=== PATIENT | male | born 1990 | race Caucasian/White ===

== ENCOUNTER 2016-12-13 11:28 | Emergency (ER) | payer OTHER, SELFPAY ==
[2016-12-13] MEDS ORDERED: Sodium Chloride 0.9% 1000 ML 1,000 ML IV STA ×2 (11:31→11:34)
[2016-12-13] MEDS ORDERED: Geodon 20 MG INJ IM ONE ×2 (11:32→11:46)
[2016-12-13] MEDS ORDERED: Lactated Ringers 1,000 ML IV ONE ×4 (11:32→12:08)
[2016-12-13] MEDS ORDERED: Ketamine HCl 50 MG/ML IM ONE (11:33)
[2016-12-13] MEDS ORDERED: D50W 50 ml Abboject IV ONE ×2 (11:33→11:41)
[2016-12-13] MEDS ORDERED: FEVERALL 650 MG PR STA (11:39)
[2016-12-13] MEDS ORDERED: ROCEPHIN 2 Gm-D5w 50ML BAG** 2 G/50 ML IVPB IV STA (11:39)
[2016-12-13] MEDS ORDERED: FEVERALL 325 MG ONE (11:42)
[2016-12-13] MEDS ORDERED: FEVERALL 650 MG ONE (11:43)
[2016-12-13 11:44] LABS: Mean Cell Volume 91.5 fl (78-100); Mean Corpuscular Hemoglobin 30.1 pg (26-32); Mean Platelet Volume 12.4 fl (6-9.5); Platelet Count 364 K/mm3 (150-450); Red Blood Count 5.54 M/mm3 (4.1-5.6); Red Cell Distribution Width 14.3 % (11.5-14.0); White Blood Count 17.6 K/mm3 (4.0-10.5)
[2016-12-13] MEDS ORDERED: Sodium Chloride 0.9% 1000 ML 2,000 ML ONE (11:44)
[2016-12-13] MEDS ORDERED: ROCEPHIN 2 Gm-D5w 50ML BAG** 2 G/50 ML IVPB IV ONE (11:44)
[2016-12-13] MEDS ORDERED: VERSED 5 MG/5 ML ONE ×3 (11:46→13:15)
[2016-12-13 11:52] LABS: INR 1.01 (0.8-3.0); PROTIME 11.2 SECONDS (8.83-12.87)
[2016-12-13] MEDS ORDERED: SODIUM BICARBONATE 50 MEQ/50 ML ABBOJECT IV ONE ×2 (11:57→12:10)
[2016-12-13 12:03] LABS: VBG BASE EXCESS -21.5 (-2.0-2.0); VBG CARBOXYHEMOGLOBIN 2.6 % T HGB (0.0-6.9); VBG HCO3- 8.8 meq/L (22-28); VBG HEMOGLOBIN 17.2; VBG POTASSIUM 6.1 (3.5-5.1); VBG pH 7.02 (7.32-7.42)
[2016-12-13 12:04] LABS: ALBUMIN 5.7 g/dL (3.4-5.0); ALKALINE PHOSPHATASE 122 U/L (46-116); ANION GAP 45.3 MEQ/L (5-15); BLOOD UREA NITROGEN 23 mg/dL (9-20); CHLORIDE 102 mEq/L (98-107); MAGNESIUM 4.5 mg/dL (1.8-2.4); SGOT/AST 48 U/L (15-37); SGPT/ALT 30 U/L (12-78); Total Protein 9.6 gm/dL (6.4-8.2)
[2016-12-13 12:04] LABS: A-aADO2 589; ARTERIAL BLD GAS O2 SATURATION 93.7 % (95-100); ARTERIAL BLOOD GAS BASE EXCESS -14.8 (-2.0-2.0); ARTERIAL BLOOD GAS FIO2 100 %; ARTERIAL BLOOD GAS PO2 74 mmHg (75-100); Lactic Acid 13.8 (0.4-2.0)
[2016-12-13 12:05] LABS: ARTERIAL BLOOD GAS pH 7.14 (7.35-7.45)
[2016-12-13 12:08] LABS: Potassium 6.2 mEq/L (3.5-5.1); SODIUM 152 mEq/L (136-145)
[2016-12-13] MEDS ORDERED: Adacel Vial IM ONE (12:08)
--- NOTE | 2016-12-13 12:08 | XRAY ---
Indication: Acute mental status change. Comparison: None Portable chest limited by respiration artifact. Lungs inflated and clear. Heart is not enlarged. Bony thorax intact. Impression: Nonacute limited chest.
[2016-12-13 12:09] LABS: Carbon Dioxide 10.5 mEq/L (21-32)
[2016-12-13 12:10] LABS: ETHYL ALCOHOL < 0.010 % (0.00-0.01); Glucose 61 MG/DL (70-110)
[2016-12-13 12:11] LABS: ACETAMINOPHEN < 2 ug/ml (10-30)
[2016-12-13] MEDS ORDERED: VERSED 5 MG/5 ML IV ONE ×2 (12:12→12:13)
[2016-12-13 12:14] LABS: Eosinophil 1 % (0.00-3.0); Total Cells Counted 100
[2016-12-13 12:16] LABS: Platelet Estimate NORMAL (NORMAL)
[2016-12-13 12:22] LABS: Collection Type CATH
[2016-12-13 12:23] LABS: Bilirubin SMALL (NEGATIVE); COMPLETE URINE MICROSCOPIC? YES; Glucose NEGATIVE (NEGATIVE)
[2016-12-13 12:24] LABS: Leukocyte Esterase 1+ (NEGATIVE); Mucus SLIGHT /HPF (NEGATIVE)
[2016-12-13 12:25] LABS: ADD URINE CULTURE? YES (NO); Bacteria FEW /HPF (NEGATIVE); Epithelial Cells RARE /HPF (FEW); Hyaline Casts 0-2 /LPF (0-2)
[2016-12-13] MEDS ORDERED: DUONEB 0.5-3 MG/3 ml Neb IH ONE ×2 (12:30→12:31)
[2016-12-13 12:36] LABS: Lactic Acid > 20.0 (0.4-2.0)
--- NOTE | 2016-12-13 12:57 | ERPHSYRPT ---
- History of Present Illness Time Seen by Provider: 12/13/16 11:31 Source: EMS, police Patient Subjective Stated Complaint: PT BROUGHT TO ED WITH POLICE ET EMS-EMS CALLED TO SCENE DUE TO PT BEING COMBATIVE ET OVERDOSE-PT HAD REQUIRED [employer] OFFICERS TO RESTRAIN HIM Triage Nursing Assessment: PT ARRIVED [id number] ABOUT HIS GENITALS-PT RESTRAINED BY [employer] PERSONEL-SUPERFICIAL ABRASIONS NOTED TO UPPER BACK-PT STRAINING-HOT TO TOUCH-DIAPHOETIC Physician History: CC: agitation Hx: 26 y/o patient brought to ER per EMS and police. They were called to someone outside naked, screaming about drugs, and acting crazy. He was extremely agitated. He arrived per EMS with multiple attendants. He has superficial scratches and abrasion. He was yelling, rigid, and combative. Pt unable to give hx. 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 - Past Surgical History Past Surgical History: Yes Other Surgical History: T&A - Social History Smoking Status: Current every day smoker How long have you smoked: 5 Exposure to second hand smoke: Yes Drug Use: none Patient Lives Alone: No - Nursing Vital Signs Nursing Vital Signs: Initial Vital Signs Pulse Rate 155 H 12/13/16 11:33 Blood Pressure 134/85 12/13/16 11:33 O2 Sat by Pulse Oximetry 96 12/13/16 11:33 - Physical Exam General Appearance: other (extremely agitated) Eye Exam: PERRL/EOMI Ears, Nose, Throat Exam: dry mucous membranes (dried blood on lips) Respiratory Exam: rhonchi Cardiovascular Exam: regular rate/rhythm, tachycardia Gastrointestinal/Abdomen Exam: soft, No tenderness, No distention Male Genitalia Exam: normal genitalia Back Exam: other (superficial abrasions) Extremity Exam: normal range of motion Neurologic Exam: other (moves all extremities, kicking, hitting, flailing) Skin Exam: other (hot skin that is diaphoretic) SpO2 Interpretation: normal SpO2: 99 Oxygen Delivery: Nasal Cannula Procedures - Intubation Intubation Indications: airway protection Intubation Method: glidescope Tube Size (cm): 7.5 Medications: Midazolam (Versed), Rocuronium Endotracheal Tube Confirmation: bilateral breath sounds, positive end tidal CO2 , good rise & fall of chest, stable or inc of O2 sat Intubation Complications: no complications Performed By: Respiratory Therapy Post Intubation Xray: Yes - Course Nursing assessment & vital signs reviewed: Yes EKG Interpreted by Me: RATE (147), Sinus Tach, NORMAL AXIS, NORMAL INTERVALS ( QTc 438), Non-specific ST Changes - Radiology Exams cxr X-ray Interpretation: Discussed w/ radiologist, Negative Ordered Tests: Active Orders 24 hr Category Date Time Status CO2 Monitoring STAT Care 12/13/16 12:12 Active Public Policy Coordinator STAT Care 12/13/16 11:31 Active Catheter-Marathon Ocntreras STAT Care 12/13/16 11:31 Active EKG-ER Only STAT Care 12/13/16 11:31 Active IV Insertion STAT Care 12/13/16 11:31 Active Pulse Oximetry (ED) STAT Care 12/13/16 12:12 Active CHEST 1 VIEW (PORTABLE) Stat Exams 12/13/16 11:34 Completed CHEST 1 VIEW (PORTABLE) Stat Exams 12/13/16 12:59 Taken ABG [ARTERIAL BLOOD GASES] Urgent Lab 12/13/16 12:50 Results ACETAMINOPHEN Stat Lab 12/13/16 11:44 Completed ARTERIAL BLOOD GASES Stat Lab 12/13/16 12:02 Completed BLOOD CULTURE Stat Lab 12/13/16 11:44 Received CBC W DIFF Stat Lab 12/13/16 11:44 Completed CK-Creatinine Phosphokinase Stat Lab 12/13/16 11:44 Completed CMP Stat Lab 12/13/16 11:44 Completed CULTURE,URINE Stat Lab 12/13/16 11:45 Received ETHYL ALCOHOL Stat Lab 12/13/16 11:44 Completed Glucose,Critical Care Stat Lab 12/13/16 12:05 Completed Glucose,Critical Care Urgent Lab 12/13/16 12:02 Completed Glucose,Critical Care Urgent Lab 12/13/16 12:50 Completed Lactic Acid Stat Lab 12/13/16 11:33 Completed Lactic Acid Stat Lab 12/13/16 12:02 Completed Lactic Acid Urgent Lab 12/13/16 12:50 Results MAGNESIUM Stat Lab 12/13/16 11:44 Completed Manual Differential NC Stat Lab 12/13/16 11:44 Completed PROTIME WITH INR Stat Lab 12/13/16 11:44 Completed SALICYLATE Stat Lab 12/13/16 11:44 Completed UA W/ MICROSCOPIC Stat Lab 12/13/16 11:45 Completed Urine Triage Profile Stat Lab 12/13/16 11:45 Completed VENOUS BLOOD GAS Stat Lab 12/13/16 11:32 Completed Respiratory Nebulizer STAT RT 12/13/16 12:31 Active Medication Summary Generic Name Dose Route Start Last Admin Trade Name Freq PRN Reason Stop Dose Admin Lactated Ringer's 1,000 mls @ 100 mls/hr 12/13/16 13:00 12/13/16 13:02 Lactated Ringers IV 01/12/17 12:59 100 mls/hr .Q10H ASHLEY Administration Midazolam HCl 50 mg/ Sodium 250 mls @ 10 mls/hr 12/13/16 13:03 12/13/16 13:26 Chloride IV 01/12/17 13:02 2 mg/hr .Q24H PRN 10 mls/hr SEDATION Administration Protocol 2 MG/HR Sodium Bicarbonate 150 meq/ 1,150 mls @ 125 mls/hr 12/13/16 13:30 12/13/16 13 :30 Dextrose IV 12/13/16 22:41 100 ml/hr .Q9H12M ASHLEY 100 mls/hr Administration Potassium Chloride 100 mls @ 25 mls/hr 12/13/16 13:40 Potassium Chloride 20 Meq In Water 100ml IV 12/13/16 17:39 STAT ONE Discontinued Medications Generic Name Dose Route Start Last Admin Trade Name Freq PRN Reason Stop Dose Admin Acetaminophen 975 mg 12/13/16 11:39 12/13/16 11:43 Feverall 650 Mg NC 12/13/16 11:40 975 mg STAT STA Administration Acetaminophen Confirm 12/13/16 11:42 Feverall 325 Mg Administered 12/13/16 11:43 Dose 325 mg .ROUTE .STK-MED ONE Acetaminophen Confirm 12/13/16 11:43 Feverall 650 Mg Administered 12/13/16 11:44 Dose 650 mg .ROUTE .STK-MED ONE Albuterol/Ipratropium Confirm 12/13/16 12:30 Duoneb 0.5-3 Mg/3 Ml Neb Administered 12/13/16 12:31 Dose 3 ml IH .STK-MED ONE Albuterol/Ipratropium 3 ml 12/13/16 12:31 Duoneb 0.5-3 Mg/3 Ml Neb IH 12/13/16 12:32 STAT ONE Dextrose 50 ml 12/13/16 11:33 12/13/16 11:43 D50w 50 Ml Abboject IV 12/13/16 11:34 50 ml STAT ONE Administration Dextrose Confirm 12/13/16 11:41 D50w 50 Ml Abboject Administered 12/13/16 11:42 Dose 50 ml IV .STK-MED ONE Diphtheria/Tetanus/Acell Pertussis Confirm 12/13/16 12:08 Adacel Vial Administered 12/13/16 12:09 Dose 0.5 ml IM .STK-MED ONE Sodium Chloride 1,000 mls @ 999 mls/hr 12/13/16 11:31 12/13/16 11:36 Sodium Chloride 0.9% 1000 Ml IV 12/13/16 12:31 999 mls/hr .Q1H1M STA Administration Lactated Ringer's 1,000 mls @ 999 mls/hr 12/13/16 11:32 12/13/16 11:36 Lactated Ringers IV 12/13/16 12:32 999 mls/hr .Q1H1M ONE Administration Sodium Chloride 1,000 mls @ 999 mls/hr 12/13/16 11:34 12/13/16 11:40 Sodium Chloride 0.9% 1000 Ml IV 12/13/16 12:34 999 mls/hr .Q1H1M STA Administration Lactated Ringer's Confirm 12/13/16 11:33 Lactated Ringers Administered 12/13/16 11:34 Dose 1,000 mls @ ud IV .STK-MED ONE Ceftriaxone Sodium/Dextrose 2 g in 50 mls @ 100 mls/hr 12/13/16 11:39 11:46 Rocephin 2 Gm-D5w 50ml Bag IV 12/13/16 12:08 100 mls/hr STAT STA Administration Lactated Ringer's Confirm 12/13/16 11:43 Lactated Ringers Administered 12/13/16 11:44 Dose 1,000 mls @ ud IV .STK-MED ONE Ceftriaxone Sodium/Dextrose Confirm 12/13/16 11:44 Rocephin 2 Gm-D5w 50ml Bag Administered 12/13/16 11:45 Dose 2 g in 50 mls @ ud IV .STK-MED ONE Sodium Chloride Confirm 12/13/16 11:44 Sodium Chloride 0.9% 1000 Ml Administered 12/13/16 11:45 Dose 2,000 mls @ ud .ROUTE .STK-MED ONE Lactated Ringer's Confirm 12/13/16 12:08 Lactated Ringers Administered 12/13/16 12:09 Dose 1,000 mls @ ud IV .STK-MED ONE Dextrose/Lactated Ringer's Confirm 12/13/16 13:00 Dextrose 5%-Lr Iv Solution 1000 Ml Administered 12/13/16 13:01 Dose 1,000 mls @ ud IV .STK-MED ONE Ketamine HCl 300 mg 12/13/16 11:33 12/13/16 11:36 Ketamine Hcl 50 Mg/Ml IM 12/13/16 11:34 300 mg STAT ONE Administration Midazolam HCl Confirm 12/13/16 11:46 Versed 5 Mg/5 Ml Administered 12/13/16 11:47 Dose 5 mg .ROUTE .STK-MED ONE Midazolam HCl Confirm 12/13/16 11:47 Versed 5 Mg/5 Ml Administered 12/13/16 11:48 Dose 5 mg .ROUTE .STK-MED ONE Midazolam HCl 2.5 mg 12/13/16 12:12 12/13/16 11:52 Versed 5 Mg/5 Ml IV 12/13/16 12:13 2.5 mg STAT ONE Administration Midazolam HCl 2.5 mg 12/13/16 12:13 12/13/16 12:14 Versed 5 Mg/5 Ml IV 12/13/16 12:14 2.5 mg STAT ONE Administration Sodium Bicarbonate Confirm 12/13/16 11:57 Sodium Bicarbonate 50 Meq/50 Ml Abboject Administered 12/13/16 11:58 Dose 50 meq IV .STK-MED ONE Sodium Bicarbonate 50 meq 12/13/16 12:10 12/13/16 12:02 Sodium Bicarbonate 50 Meq/50 Ml Abboject IV 12/13/16 12:11 50 meq STAT ONE Administration Ziprasidone 20 mg 12/13/16 11:32 12/13/16 11:39 Geodon 20 Mg Inj IM 12/13/16 11:33 20 mg STAT ONE Administration Ziprasidone Confirm 12/13/16 11:46 Geodon 20 Mg Inj Administered 12/13/16 11:47 Dose 20 mg IM .STK-MED ONE Lab/Rad Data: Laboratory Result Diagrams 12/13/16 11:44 12/13/16 11:44 Laboratory Results 12/13/16 12/13/16 12/13/16 Range/Units 12:50 12:50 12:05 WBC (4.0-10.5) K/mm3 RBC (4.1-5.6) M/mm3 Hgb (12.5-18.0) gm/dl Hct (42-50) % MCV (78-100) fl MCH (26-32) pg MCHC (32-36) g/dl RDW (11.5-14.0) % Plt Count (150-450) K/mm3 MPV (6-9.5) fl Segmented Neutrophils (36.-66.) % Lymphocytes (Manual) (24-44) % Monocytes (Manual) (0.0-12.0) % Eosinophils (Manual) (0.00-3.0) % Differential Comment Platelet Estimate (NORMAL) INR (0.8-3.0) Puncture Site lr pCO2 54 H (35-45) mmHg pO2 288 H* (75-100) mmHg Base Excess -6.8 L (-2.0-2.0) O2 Saturation 97.5 (94-100) g/dF ABG pH 7.21 L* (7.35-7.45) ABG HCO3 21.6 L (22-28) ABG O2 Sat (Measured) 100.5 H (95-100) % Lexx Test NOT APPLICABLE VBG pH (7.32-7.42) VBG pCO2 at Pat Temp (42-55) mm/Hg VBG pO2 at Pat Temp (25-40) mm/Hg VBG HCO3 (22-28) meq/L VBG O2 Sat (Lulu) (95-100) VBG Base Excess (-2.0-2.0) VBG Hemoglobin VBG Carboxyhemoglobin (0.0-6.9) % T HGB A-a Gradient 358 a/A Ratio 0.45 Hemoglobin 13.5 Carboxyhemoglobin 1.8 (0.0-6.9) % THgb Methemoglobin 1.2 L (1.4-1.5) % POC Potassium (3.5-5.1) Temperature 37.0 C POC O2 Flow Rate 100 % Sodium (136-145) mEq/L Potassium 4.8 (3.5-5.1) mEq/L Chloride (98-107) mEq/L Carbon Dioxide (21-32) mEq/L Anion Gap (5-15) MEQ/L BUN (9-20) mg/dL Creatinine (0.55-1.30) mg/dl Estimated GFR ML/MIN Glucose 90 139 H (70-110) MG/DL Lactic Acid 3.6 H (0.4-2.0) Calcium (8.5-10.1) mg/dL Magnesium (1.8-2.4) mg/dL Total Bilirubin (0.2-1.0) mg/dL AST (15-37) U/L ALT (12-78) U/L Alkaline Phosphatase (46-116) U/L Creatine Kinase (39-308) U/L Serum Total Protein (6.4-8.2) gm/dL Albumin (3.4-5.0) g/dL Ur Collection Type Urine Color (YELLOW) Urine Appearance (CLEAR) Urine pH (5-6) Ur Specific [place] (1.005-1.025) Urine Protein (Negative) Urine Ketones (NEGATIVE) Urine Blood (0-5) Corey/ul Urine Nitrite (NEGATIVE) Urine Bilirubin (NEGATIVE) Urine Urobilinogen (0-1) mg/dL Ur Leukocyte Esterase (NEGATIVE) Urine Microscopic RBC (0-2) /HPF Urine Microscopic WBC (0-5) /HPF Ur Epithelial Cells (FEW) /HPF Urine Bacteria (NEGATIVE) /HPF Hyaline Casts (0-2) /LPF Granular Casts (NEGATIVE) /LPF Urine Mucus (NEGATIVE) /HPF Urine Sperm (NEGATIVE) /HPF Urine Glucose (NEGATIVE) mg/dL Salicylates (2.8-20.0) mg/dl Urine Opiates Level (NEGATIVE) Ur Methadone (NEGATIVE) Acetaminophen (10-30) ug/ml Urine Barbiturates (NEGATIVE) Ur Phencyclidine (PCP) (NEGATIVE) Urine Amphetamine (NEGATIVE) U Benzodiazepine Level (NEGATIVE) Urine Cocaine (NEGATIVE) Urine Marijuana (THC) (NEGATIVE) Ethyl Alcohol (0.00-0.01) % Specimen Received 12/13/16 12/13/16 12/13/16 Range/Units 12:02 12:02 11:45 WBC (4.0-10.5) K/mm3 RBC (4.1-5.6) M/mm3 Hgb (12.5-18.0) gm/dl Hct (42-50) % MCV (78-100) fl MCH (26-32) pg MCHC (32-36) g/dl RDW (11.5-14.0) % Plt Count (150-450) K/mm3 MPV (6-9.5) fl Segmented Neutrophils (36.-66.) % Lymphocytes (Manual) (24-44) % Monocytes (Manual) (0.0-12.0) % Eosinophils (Manual) (0.00-3.0) % Differential Comment Platelet Estimate (NORMAL) INR (0.8-3.0) Puncture Site LEFT RADIAL pCO2 40 (35-45) mmHg pO2 74 L (75-100) mmHg Base Excess -14.8 L (-2.0-2.0) O2 Saturation 91.0 L (94-100) g/dF ABG pH 7.14 L* (7.35-7.45) ABG HCO3 13.6 L* (22-28) ABG O2 Sat (Measured) 93.7 L (95-100) % Lexx Test NOT APPLICABLE VBG pH (7.32-7.42) VBG pCO2 at Pat Temp (42-55) mm/Hg VBG pO2 at Pat Temp (25-40) mm/Hg VBG HCO3 (22-28) meq/L VBG O2 Sat (Lulu) (95-100) VBG Base Excess (-2.0-2.0) VBG Hemoglobin VBG Carboxyhemoglobin (0.0-6.9) % T HGB A-a Gradient 589 a/A Ratio 0.11 Hemoglobin 14.5 Carboxyhemoglobin 2.1 (0.0-6.9) % THgb Methemoglobin 0.8 L (1.4-1.5) % POC Potassium (3.5-5.1) Temperature 37.0 C POC O2 Flow Rate 100 % Sodium (136-145) mEq/L Potassium 5.2 H (3.5-5.1) mEq/L Chloride (98-107) mEq/L Carbon Dioxide (21-32) mEq/L Anion Gap (5-15) MEQ/L BUN (9-20) mg/dL Creatinine (0.55-1.30) mg/dl Estimated GFR ML/MIN Glucose 54 L (70-110) MG/DL Lactic Acid 13.8 H (0.4-2.0) Calcium (8.5-10.1) mg/dL Magnesium (1.8-2.4) mg/dL Total Bilirubin (0.2-1.0) mg/dL AST (15-37) U/L ALT (12-78) U/L Alkaline Phosphatase (46-116) U/L Creatine Kinase (39-308) U/L Serum Total Protein (6.4-8.2) gm/dL Albumin (3.4-5.0) g/dL Ur Collection Type Urine Color (YELLOW) Urine Appearance (CLEAR) Urine pH (5-6) Ur Specific [place] (1.005-1.025) Urine Protein (Negative) Urine Ketones (NEGATIVE) Urine Blood (0-5) Corey/ul Urine Nitrite (NEGATIVE) Urine Bilirubin (NEGATIVE) Urine Urobilinogen (0-1) mg/dL Ur Leukocyte Esterase (NEGATIVE) Urine Microscopic RBC (0-2) /HPF Urine Microscopic WBC (0-5) /HPF Ur Epithelial Cells (FEW) /HPF Urine Bacteria (NEGATIVE) /HPF Hyaline Casts (0-2) /LPF Granular Casts (NEGATIVE) /LPF Urine Mucus (NEGATIVE) /HPF Urine Sperm (NEGATIVE) /HPF Urine Glucose (NEGATIVE) mg/dL Salicylates (2.8-20.0) mg/dl Urine Opiates Level NEG. (NEGATIVE) Ur Methadone NEG. (NEGATIVE) Acetaminophen (10-30) ug/ml Urine Barbiturates NEG. (NEGATIVE) Ur Phencyclidine (PCP) NEG. (NEGATIVE) Urine Amphetamine POS. (NEGATIVE) U Benzodiazepine Level NEG. (NEGATIVE) Urine Cocaine NEG. (NEGATIVE) Urine Marijuana (THC) NEG. (NEGATIVE) Ethyl Alcohol (0.00-0.01) % Specimen Received 12/13/16 12/13/16 12/13/16 Range/Units 11:45 11:44 11:44 WBC (4.0-10.5) K/mm3 RBC (4.1-5.6) M/mm3 Hgb (12.5-18.0) gm/dl Hct (42-50) % MCV (78-100) fl MCH (26-32) pg MCHC (32-36) g/dl RDW (11.5-14.0) % Plt Count (150-450) K/mm3 MPV (6-9.5) fl Segmented Neutrophils (36.-66.) % Lymphocytes (Manual) (24-44) % Monocytes (Manual) (0.0-12.0) % Eosinophils (Manual) (0.00-3.0) % Differential Comment Platelet Estimate (NORMAL) INR 1.01 (0.8-3.0) Puncture Site pCO2 (35-45) mmHg pO2 (75-100) mmHg Base Excess (-2.0-2.0) O2 Saturation (94-100) g/dF ABG pH (7.35-7.45) ABG HCO3 (22-28) ABG O2 Sat (Measured) (95-100) % Lexx Test VBG pH (7.32-7.42) VBG pCO2 at Pat Temp (42-55) mm/Hg VBG pO2 at Pat Temp (25-40) mm/Hg VBG HCO3 (22-28) meq/L VBG O2 Sat (Lulu) (95-100) VBG Base Excess (-2.0-2.0) VBG Hemoglobin VBG Carboxyhemoglobin (0.0-6.9) % T HGB A-a Gradient a/A Ratio Hemoglobin Carboxyhemoglobin (0.0-6.9) % THgb Methemoglobin (1.4-1.5) % POC Potassium (3.5-5.1) Temperature C POC O2 Flow Rate % Sodium 152 H* (136-145) mEq/L Potassium 6.2 H* (3.5-5.1) mEq/L Chloride 102 (98-107) mEq/L Carbon Dioxide 10.5 L* (21-32) mEq/L Anion Gap 45.3 H (5-15) MEQ/L BUN 23 H (9-20) mg/dL Creatinine 1.97 H (0.55-1.30) mg/dl Estimated GFR 45 ML/MIN Glucose 61 L (70-110) MG/DL Lactic Acid (0.4-2.0) Calcium 10.4 H (8.5-10.1) mg/dL Magnesium 4.5 H (1.8-2.4) mg/dL Total Bilirubin 3.00 H (0.2-1.0) mg/dL AST 48 H (15-37) U/L ALT 30 (12-78) U/L Alkaline Phosphatase 122 H (46-116) U/L Creatine Kinase 2310 H (39-308) U/L Serum Total Protein 9.6 H (6.4-8.2) gm/dL Albumin 5.7 H (3.4-5.0) g/dL Ur Collection Type CATH Urine Color YELLOW (YELLOW) Urine Appearance CLOUDY (CLEAR) Urine pH 5.0 (5-6) Ur Specific [place] 1.025 (1.005-1.025) Urine Protein 100 (Negative) Urine Ketones TRACE (NEGATIVE) Urine Blood 5-10 (0-5) Corey/ul Urine Nitrite NEGATIVE (NEGATIVE) Urine Bilirubin SMALL (NEGATIVE) Urine Urobilinogen NORMAL (0-1) mg/dL Ur Leukocyte Esterase 1+ (NEGATIVE) Urine Microscopic RBC 0-2 (0-2) /HPF Urine Microscopic WBC 5-10 (0-5) /HPF Ur Epithelial Cells RARE (FEW) /HPF Urine Bacteria FEW (NEGATIVE) /HPF Hyaline Casts 0-2 (0-2) /LPF Granular Casts 10-25 (NEGATIVE) /LPF Urine Mucus SLIGHT (NEGATIVE) /HPF Urine Sperm PRESENT (NEGATIVE) /HPF Urine Glucose NEGATIVE (NEGATIVE) mg/dL Salicylates < 2.8 L (2.8-20.0) mg/dl Urine Opiates Level (NEGATIVE) Ur Methadone (NEGATIVE) Acetaminophen < 2 L (10-30) ug/ml Urine Barbiturates (NEGATIVE) Ur Phencyclidine (PCP) (NEGATIVE) Urine Amphetamine (NEGATIVE) U Benzodiazepine Level (NEGATIVE) Urine Cocaine (NEGATIVE) Urine Marijuana (THC) (NEGATIVE) Ethyl Alcohol < 0.010 (0.00-0.01) % Specimen Received 12/13/16 1200 12/13/16 12/13/16 12/13/16 Range/Units 11:44 11:33 11:32 WBC 17.6 H (4.0-10.5) K/mm3 RBC 5.54 (4.1-5.6) M/mm3 Hgb 16.7 (12.5-18.0) gm/dl Hct 50.7 H (42-50) % MCV 91.5 (78-100) fl MCH 30.1 (26-32) pg MCHC 32.9 (32-36) g/dl RDW 14.3 H (11.5-14.0) % Plt Count 364 (150-450) K/mm3 MPV 12.4 H (6-9.5) fl Segmented Neutrophils 64 (36.-66.) % Lymphocytes (Manual) 31 (24-44) % Monocytes (Manual) 4 (0.0-12.0) % Eosinophils (Manual) 1 (0.00-3.0) % Differential Comment NORMAL Platelet Estimate NORMAL (NORMAL) INR (0.8-3.0) Puncture Site pCO2 (35-45) mmHg pO2 (75-100) mmHg Base Excess (-2.0-2.0) O2 Saturation (94-100) g/dF ABG pH (7.35-7.45) ABG HCO3 (22-28) ABG O2 Sat (Measured) (95-100) % Lexx Test VBG pH 7.02 L* (7.32-7.42) VBG pCO2 at Pat Temp 34 L (42-55) mm/Hg VBG pO2 at Pat Temp 65 H (25-40) mm/Hg VBG HCO3 8.8 L* (22-28) meq/L VBG O2 Sat (Lulu) 88.0 L (95-100) VBG Base Excess -21.5 L (-2.0-2.0) VBG Hemoglobin 17.2 VBG Carboxyhemoglobin 2.6 (0.0-6.9) % T HGB A-a Gradient a/A Ratio Hemoglobin Carboxyhemoglobin (0.0-6.9) % THgb Methemoglobin (1.4-1.5) % POC Potassium 6.1 H* (3.5-5.1) Temperature C POC O2 Flow Rate % Sodium (136-145) mEq/L Potassium (3.5-5.1) mEq/L Chloride (98-107) mEq/L Carbon Dioxide (21-32) mEq/L Anion Gap (5-15) MEQ/L BUN (9-20) mg/dL Creatinine (0.55-1.30) mg/dl Estimated GFR ML/MIN Glucose (70-110) MG/DL Lactic Acid > 20.0 H (0.4-2.0) Calcium (8.5-10.1) mg/dL Magnesium (1.8-2.4) mg/dL Total Bilirubin (0.2-1.0) mg/dL AST (15-37) U/L ALT (12-78) U/L Alkaline Phosphatase (46-116) U/L Creatine Kinase (39-308) U/L Serum Total Protein (6.4-8.2) gm/dL Albumin (3.4-5.0) g/dL Ur Collection Type Urine Color (YELLOW) Urine Appearance (CLEAR) Urine pH (5-6) Ur Specific [place] (1.005-1.025) Urine Protein (Negative) Urine Ketones (NEGATIVE) Urine Blood (0-5) Corey/ul Urine Nitrite (NEGATIVE) Urine Bilirubin (NEGATIVE) Urine Urobilinogen (0-1) mg/dL Ur Leukocyte Esterase (NEGATIVE) Urine Microscopic RBC (0-2) /HPF Urine Microscopic WBC (0-5) /HPF Ur Epithelial Cells (FEW) /HPF Urine Bacteria (NEGATIVE) /HPF Hyaline Casts (0-2) /LPF Granular Casts (NEGATIVE) /LPF Urine Mucus (NEGATIVE) /HPF Urine Sperm (NEGATIVE) /HPF Urine Glucose (NEGATIVE) mg/dL Salicylates (2.8-20.0) mg/dl Urine Opiates Level (NEGATIVE) Ur Methadone (NEGATIVE) Acetaminophen (10-30) ug/ml Urine Barbiturates (NEGATIVE) Ur Phencyclidine (PCP) (NEGATIVE) Urine Amphetamine (NEGATIVE) U Benzodiazepine Level (NEGATIVE) Urine Cocaine (NEGATIVE) Urine Marijuana (THC) (NEGATIVE) Ethyl Alcohol (0.00-0.01) % Specimen Received - Progress Progress Note: 12/13/16 12:52 Pt was placed on cot supine with attendants physically restraining. Attempt at vitals. IM Ketamine given followed by IM [place], 3 doses IV versed. 5L LR/NS IVF bolus given. Adacel updated. He was given dextrose and bicarb. Cultures blood sent. Rocephin given. Metabolic correcting. Current pH 7.21, pCO2 54, pO2 288, HCO3 21, K 4.8, Glc 90, lactic 3.6. Called Dr Macedo )oc) and she advised transfer to a critical care facililty. Spoke to Dr Ward at [facility] ER and will accept transfer to [facility] ER where he can have ICU, critical care, and renal. Will intubate for airway protection and control as he is somnolent at this time. Condition improving. Emergency treatment provided as pt unable to consent due to condition and no family available. Police are attempting to notify grandmother his next of kin. 12/13/16 13:44 Tolerated RSI/intubation. Bicarb gtt started for rhabdomyolysis. Will give low dose K rider as well to support potassium. pH 7.29, pCO2 46, pO2 144, HCO3 22, K 4.3, glc 168, lactic 1.5. Counseled pt/family regarding: lab results, diagnosis, need for follow-up, rad results - Departure Time of Disposition: 13:45 Departure Disposition: Transfer ([facility] ER) Clinical Impression: excited delerium, Rhabdomyolysis, Drug ingestion, Fever Condition: Serious Critical Care Time: Yes Critical Care Time(excluding separately billable procedures): 75-104 minutes
[2016-12-13] MEDS ORDERED: Dextrose 5%-Lr IV Solution 1000 ML 1,000 ML IV ONE (13:00)
[2016-12-13] MEDS ORDERED: Lactated Ringers 1,000 ML IV SCH ×2 (13:00→15:00)
[2016-12-13] MEDS ORDERED: Zemuron 100 MG/10 ML IV ONE (13:00)
[2016-12-13 13:08] VITALS: BP 127/92
[2016-12-13] MEDS: Versed 50 MG/ 10 Ml MDV*** 50 MG in Sodium Chloride 0.9% 250 ML 240 ML IV PRN ×2 (13:14→13:26)
[2016-12-13] MEDS ORDERED: Zemuron 100 MG/10 ML ONE (13:15)
[2016-12-13 13:30] LABS: A-aADO2 358; ARTERIAL BLD GAS O2 SATURATION 100.5 % (95-100); ARTERIAL BLOOD GAS BASE EXCESS -6.8 (-2.0-2.0); ARTERIAL BLOOD GAS FIO2 100 %; ARTERIAL BLOOD GAS PO2 288 mmHg (75-100); Lactic Acid 3.6 (0.4-2.0)
[2016-12-13] MEDS ORDERED: Sodium Bicarbonate 50 MEQ/50 ML VIAL*** 150 MEQ in Dextrose 5%/Water IV Soln. 1000 ML 1... IV SCH (13:30)
[2016-12-13 13:31] LABS: ARTERIAL BLOOD GAS pH 7.21 (7.35-7.45)
[2016-12-13] MEDS ORDERED: POTASSIUM CHLORIDE 20 mEq IN WATER 100ML 100 ML IV ONE (13:40)
[2016-12-13 13:47] LABS: VBG BASE EXCESS -4.6 (-2.0-2.0); VBG CARBOXYHEMOGLOBIN 1.7 % T HGB (0.0-6.9); VBG HCO3- 22.1 meq/L (22-28); VBG HEMOGLOBIN 13.4; VBG O2 SATURATION 99.9 (95-100); VBG POTASSIUM 4.3 (3.5-5.1); VBG pH 7.29 (7.32-7.42)
--- NOTE | 2016-12-13 13:53 | XRAY ---
Indication: Tube placement. Comparison: Taken earlier today. Portable chest demonstrates interval intubation with endotracheal tube tip 4 cm above the jonatohn. Also new NG tube with the tip in the stomach. Remaining cardiopulmonary structures unremarkable.
[2016-12-13 14:08] VITALS: PULSE 112; O2SAT 98
[2016-12-13] MEDS ORDERED: Versed 2 MG/2 ML Injection IV STA (14:38)
== END 2016-12-13 14:42 | disposition short-term general hospital (02) ==
LOC: ED 11:28
DX: R41.0 Disorientation, unspecified (principal); M62.82 Rhabdomyolysis; T50.905A Adverse effect of unspecified drugs, medicaments and biological substances, initial encounter; R50.9 Fever, unspecified
CPT/HCPCS: 31500; 36000; 36415; 36600; 51702; 71010; 80053; 80307; 81000; 82375; 82550; 82803; 82805; 82947; 83605; 83735; 85025; 85610; 87040; 87077; 87086; 90715; 93005; 93041; 94002; 94640; 94770; 94799; 96360; 96361; 96365; 96366; 96367; 96368; 96372; 96375; 96376; 99285; 99291; G0481; J0696; J2250; J3480; J3486; A9270-GY

== ENCOUNTER 2017-11-02 11:13 | Emergency (ER) | payer OTHER ==
--- NOTE | 2017-11-02 12:20 | ERPHSYRPT ---
- History of Present Illness Time Seen by Provider: 11/02/17 12:03 Historian: patient, police Exam Limitations: no limitations Patient Subjective Stated Complaint: VOMITNG AND PAIN IN RIGHT UPPER BELLY THIS am Triage Nursing Assessment: ALERT SWEATING AND DISTRESSED PAIN IN RIGHT UPPER QUAD. STATES HAS NOIT HAD A BM IN 2 DAYS. VOMITED WITH NAUSEA. AQBD SOFT AND TENDER ON PALP. Physician History: Patient is a 26-year-old male brought in by police from the [facility] where this morning he had nausea with vomiting. He also had a lot of sulfur smelling burps and significant amount of flatus. He is also vomited on the way to the ER. His abdominal pain is in the right upper quadrant that is relieved with passing gas. He did not eat any breakfast this morning because he had a big meal last night. He denies fever or chills. He usually has a bowel movement every day. He has not had a bowel movement for 2 days. His past medical history is significant only for tonsillectomy. Timing/Duration: today, gradual onset Activities at Onset: none Quality: aching Abdominal Pain Onset Location: RUQ Pain Radiation: no radiation Severity of Pain-Max: moderate Severity of Pain-Current: mild Modifying Factors: Improves With: other (passing gas relieves abd pain) Associated Symptoms: nausea, vomiting, No diarrhea Previous symptoms: no prior history Allergies/Adverse Reactions: No Known Drug Allergies Allergy (Unverified 05/13/15 14:15) Home Medications: Amlodipine Besylate 5 mg [Norvasc 5 mg] 5 mg PO DAILY 10/18/14 [History] Hx Tetanus, Diphtheria Vaccination/Date Given: Yes Hx Influenza Vaccination/Date Given: No Hx Pneumococcal Vaccination/Date Given: No Immunizations Up to Date: Yes - Review of Systems Constitutional: No Fever, No Chills Eyes: No Symptoms Ears, Nose, & Throat: No Symptoms Respiratory: No Cough, No Dyspnea Cardiac: No Chest Pain, No Edema, No Syncope Abdominal/Gastrointestinal: Abdominal Pain, Nausea, Vomiting, No Diarrhea Genitourinary Symptoms: No Dysuria Musculoskeletal: No Back Pain, No Neck Pain Skin: No Rash Neurological: No Dizziness, No Focal Weakness, No Sensory Changes Psychological: No Symptoms Endocrine: No Symptoms Hematologic/Lymphatic: No Symptoms Immunological/Allergic: No Symptoms All Other Systems: Reviewed and Negative - Past Medical History Pertinent Past Medical History: Yes Cardiac History: Hypertension Other Medical History: 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 - Past Surgical History Past Surgical History: Yes Other Surgical History: T&A - Social History Smoking Status: Current every day smoker How long have you smoked: 5 Exposure to second hand smoke: Yes Drug Use: marijuana Patient Lives Alone: No - Nursing Vital Signs Nursing Vital Signs: Initial Vital Signs Temperature 99.8 F 11/02/17 11:17 Pulse Rate 97 H 11/02/17 11:17 Respiratory Rate 20 11/02/17 11:17 Blood Pressure 156/89 11/02/17 11:17 O2 Sat by Pulse Oximetry 98 11/02/17 11:17 Pain Scale Pain Intensity 7 - Physical Exam General Appearance: no apparent distress, alert Eye Exam: PERRL/EOMI, eyes nml inspection Ears, Nose, Throat Exam: normal ENT inspection, pharynx normal, moist mucous membranes Neck Exam: normal inspection, non-tender, supple, full range of motion Respiratory Exam: normal breath sounds, lungs clear, No respiratory distress Cardiovascular Exam: regular rate/rhythm, normal heart sounds Gastrointestinal/Abdomen Exam: soft, No tenderness, No mass Rectal Exam: not done Back Exam: normal inspection, normal range of motion, No CVA tenderness, No vertebral tenderness Extremity Exam: normal inspection, normal range of motion, pelvis stable Neurologic Exam: alert, oriented x 3, cooperative, normal mood/affect, nml cerebellar function, sensation nml, No motor deficits Skin Exam: normal color, warm, dry SpO2 Interpretation: normal SpO2: 98 Oxygen Delivery: Room Air - Radiology Exams Chest X-ray Interpretation: Reviewed by me, Teleradiologist Report (per Dr Jimenez), Negative Abdomen X-ray Interpretation: Reviewed by me, Teleradiologist Report (per Dr Jimenez), Other (small and large intestine air/fluid levels.) - CT Exams Abdomen/Pelvis CT Interpretation: Tele-radiologist Report (per Dr Jimenez), Other (mild fluid distended small bowel loops ileus versus enteritis; adenitis;) Ordered Tests: Active Orders 24 hr Category Date Time Status IV Insertion STAT Care 11/02/17 12:23 Active ABDOMEN AND PELVIS W/0 CONTRAS [CT] Stat Exams 11/02/17 15:18 Completed OBSTR/ACUTE ABDOMEN SERIES Stat Exams 11/02/17 12:24 Completed CBC W DIFF Stat Lab 11/02/17 12:44 Completed CMP Stat Lab 11/02/17 12:45 Completed CULTURE,URINE Stat Lab 11/02/17 12:44 Received LIPASE Stat Lab 11/02/17 12:45 Completed Lactic Acid Stat Lab 11/02/17 12:44 Completed Lactic Acid Stat Lab 11/02/17 14:44 Ordered Manual Differential NC Stat Lab 11/02/17 12:44 Completed UA W/ MICROSCOPIC Stat Lab 11/02/17 12:44 Completed Urine Triage Profile Stat Lab 11/02/17 12:44 Completed Medication Summary Discontinued Medications Generic Name Dose Route Start Last Admin Trade Name Freq PRN Reason Stop Dose Admin Sodium Chloride 1,000 mls @ 999 mls/hr 11/02/17 12:23 11/02/17 12:50 Sodium Chloride 0.9% 1000 Ml IV 11/02/17 13:23 999 mls/hr .Q1H1M STA Administration Sodium Chloride Confirm 11/02/17 12:45 Sodium Chloride 0.9% 1000 Ml Administered 11/02/17 12:46 Dose 1,000 mls @ ud .ROUTE .STK-MED ONE Ketorolac Tromethamine 30 mg 11/02/17 12:23 11/02/17 12:49 Toradol 30 Mg Injection IV 11/02/17 12:24 30 mg STAT ONE Administration Ketorolac Tromethamine Confirm 11/02/17 12:45 Toradol 30 Mg Injection Administered 11/02/17 12:46 Dose 30 mg .ROUTE .STK-MED ONE Ondansetron HCl 4 mg 11/02/17 12:23 11/02/17 12:50 Zofran 4 Mg/2 Ml Vial IV 11/02/17 12:24 4 mg STAT ONE Administration Ondansetron HCl Confirm 11/02/17 12:45 Zofran 4 Mg/2 Ml Vial Administered 11/02/17 12:46 Dose 4 mg .ROUTE .STK-MED ONE Lab/Rad Data: Laboratory Result Diagrams 11/02/17 12:44 11/02/17 12:45 Laboratory Results 11/02/17 11/02/17 11/02/17 Range/Units 12:45 12:44 12:44 WBC (4.0-10.5) K/mm3 RBC (4.1-5.6) M/mm3 Hgb (12.5-18.0) gm/dl Hct (42-50) % MCV (78-100) fl MCH (26-32) pg MCHC (32-36) g/dl RDW (11.5-14.0) % Plt Count (150-450) K/mm3 MPV (6-9.5) fl Absolute Granulocytes (1.4-6.9) Segmented Neutrophils (36.-66.) % Band Neutrophils (0.0-2.0) % Lymphocytes (Manual) (24-44) % Monocytes (Manual) (0.0-12.0) % Platelet Estimate (NORMAL) RBC Morphology Sodium 144 (137-145) mmol/L Potassium 4.2 (3.5-5.1) mmol/L Chloride 106 (98-107) mmol/L Carbon Dioxide 28 (22-30) mmol/L Anion Gap 15.0 (5-15) MEQ/L BUN 13 (9-20) mg/dL Creatinine 0.84 (0.66-1.25) mg/dL Estimated GFR > 60.0 ML/MIN Glucose 107 H (74-106) mg/dL Lactic Acid (0.4-2.0) Calcium 9.3 (8.4-10.2) mg/dL Total Bilirubin 0.70 (0.2-1.3) mg/dL AST 13 L (17-59) U/L ALT 16 (0-50) U/L Alkaline Phosphatase 129 H (38-126) U/L Serum Total Protein 7.3 (6.3-8.2) g/dL Albumin 4.6 (3.5-5.0) g/dL Lipase 18 L (23-300) U/L Ur Collection Type CCMS Urine Color YELLOW (YELLOW) Urine Appearance CLEAR (CLEAR) Urine pH 6.0 (5-6) Ur Specific [place] 1.020 (1.005-1.025) Urine Protein TRACE (Negative) Urine Ketones NEGATIVE (NEGATIVE) Urine Blood NEGATIVE (0-5) Corey/ul Urine Nitrite NEGATIVE (NEGATIVE) Urine Bilirubin NEGATIVE (NEGATIVE) Urine Urobilinogen NORMAL (0-1) mg/dL Ur Leukocyte Esterase TRACE (NEGATIVE) Urine Microscopic WBC 0-2 (0-5) /HPF Calcium Oxalate Crystal 0-2 (NEGATIVE) /HPF Urine Mucus MODERATE (NEGATIVE) /HPF Urine Culture Reflexed YES (NO) Urine Glucose NEGATIVE (NEGATIVE) mg/dL Urine Opiates Level NEGATIVE (NEGATIVE) Ur Methadone NEGATIVE (NEGATIVE) Urine Barbiturates NEGATIVE (NEGATIVE) Ur Phencyclidine (PCP) NEGATIVE (NEGATIVE) U Benzodiazepine Level NEGATIVE (NEGATIVE) Urine Cocaine NEGATIVE (NEGATIVE) Urine Marijuana (THC) NEGATIVE (NEGATIVE) Specimen Received 11-02-17 1300 11/02/17 11/02/17 Range/Units 12:44 12:44 WBC 12.7 H (4.0-10.5) K/mm3 RBC 5.75 H (4.1-5.6) M/mm3 Hgb 17.4 (12.5-18.0) gm/dl Hct 49.8 (42-50) % MCV 86.6 (78-100) fl MCH 30.2 (26-32) pg MCHC 34.9 (32-36) g/dl RDW 12.7 (11.5-14.0) % Plt Count 256 (150-450) K/mm3 MPV 9.9 H (6-9.5) fl Absolute Granulocytes 11.38 H (1.4-6.9) Segmented Neutrophils 69 H (36.-66.) % Band Neutrophils 5 H (0.0-2.0) % Lymphocytes (Manual) 21 L (24-44) % Monocytes (Manual) 5 (0.0-12.0) % Platelet Estimate NORMAL (NORMAL) RBC Morphology NORMAL Sodium (137-145) mmol/L Potassium (3.5-5.1) mmol/L Chloride (98-107) mmol/L Carbon Dioxide (22-30) mmol/L Anion Gap (5-15) MEQ/L BUN (9-20) mg/dL Creatinine (0.66-1.25) mg/dL Estimated GFR ML/MIN Glucose (74-106) mg/dL Lactic Acid 2.5 H (0.4-2.0) Calcium (8.4-10.2) mg/dL Total Bilirubin (0.2-1.3) mg/dL AST (17-59) U/L ALT (0-50) U/L Alkaline Phosphatase (38-126) U/L Serum Total Protein (6.3-8.2) g/dL Albumin (3.5-5.0) g/dL Lipase (23-300) U/L Ur Collection Type Urine Color (YELLOW) Urine Appearance (CLEAR) Urine pH (5-6) Ur Specific [place] (1.005-1.025) Urine Protein (Negative) Urine Ketones (NEGATIVE) Urine Blood (0-5) Corey/ul Urine Nitrite (NEGATIVE) Urine Bilirubin (NEGATIVE) Urine Urobilinogen (0-1) mg/dL Ur Leukocyte Esterase (NEGATIVE) Urine Microscopic WBC (0-5) /HPF Calcium Oxalate Crystal (NEGATIVE) /HPF Urine Mucus (NEGATIVE) /HPF Urine Culture Reflexed (NO) Urine Glucose (NEGATIVE) mg/dL Urine Opiates Level (NEGATIVE) Ur Methadone (NEGATIVE) Urine Barbiturates (NEGATIVE) Ur Phencyclidine (PCP) (NEGATIVE) U Benzodiazepine Level (NEGATIVE) Urine Cocaine (NEGATIVE) Urine Marijuana (THC) (NEGATIVE) Specimen Received - Progress Progress: improved Counseled pt/family regarding: lab results, diagnosis, rad results - Departure Time of Disposition: 16:02 Departure Disposition: Correction/Retirement Clinical Impression: Enteritis Condition: Stable Critical Care Time: No Referrals: JOSÉ MANUEL CAMPOS [Primary Care Provider] - Additional Instructions: You have enteritis. You were given Zofran 8 mg, Toradol 30 mg, and fluids by IV in the ER. Start with a liquid diet and advance as tolerated. Follow-up as needed.
[2017-11-02] MEDS ORDERED: Sodium Chloride 0.9% 1000 ML 1,000 ML IV STA (12:23)
[2017-11-02] MEDS ORDERED: TORAdol 30 mg Injection IV ONE (12:23)
[2017-11-02] MEDS ORDERED: Zofran 4 MG/2 ML VIAL IV ONE ×2 (12:23→16:00)
[2017-11-02] MEDS ORDERED: Zofran 4 MG/2 ML VIAL ONE ×2 (12:45→16:13)
[2017-11-02] MEDS ORDERED: Sodium Chloride 0.9% 1000 ML 1,000 ML ONE (12:45)
[2017-11-02] MEDS ORDERED: TORAdol 30 mg Injection ONE (12:45)
[2017-11-02 12:48] LABS: Granulocyte Absolute (ANC) 11.38 (1.4-6.9); Hematocrit 49.8 % (42-50); Hemoglobin 17.4 gm/dl (12.5-18.0); Mean Cell Volume 86.6 fl (78-100); Mean Corpuscular Hgb Concent. 34.9 g/dl (32-36); Mean Platelet Volume 9.9 fl (6-9.5); Platelet Count 256 K/mm3 (150-450); Red Blood Count 5.75 M/mm3 (4.1-5.6); Red Cell Distribution Width 12.7 % (11.5-14.0); White Blood Count 12.7 K/mm3 (4.0-10.5)
[2017-11-02 12:49] LABS: Mean Corpuscular Hemoglobin 30.2 pg (26-32)
[2017-11-02 12:57] VITALS: BP 146/83; PULSE 80
[2017-11-02 13:05] LABS: Barbiturate,Urine NEGATIVE (NEGATIVE); Benzodiazepine,Urine NEGATIVE (NEGATIVE); Cocaine,Urine NEGATIVE (NEGATIVE); Opiate,Urine NEGATIVE (NEGATIVE); PCP,Urine NEGATIVE (NEGATIVE); THC,Urine NEGATIVE (NEGATIVE)
[2017-11-02 13:08] LABS: Lactic Acid 2.5 (0.4-2.0)
[2017-11-02 13:12] LABS: Appearance CLEAR (CLEAR); Bilirubin NEGATIVE (NEGATIVE); Blood NEGATIVE Ery/ul (0-5); Glucose NEGATIVE (NEGATIVE); Ketones NEGATIVE (NEGATIVE); Leukocyte Esterase TRACE (NEGATIVE); Nitrite NEGATIVE (NEGATIVE); Protein,Urine Dip TRACE (Negative); Urobilinogen NORMAL mg/dL (0-1)
[2017-11-02 13:13] LABS: Calcium Oxalate Crystals 0-2 /HPF (NEGATIVE); Mucus MODERATE /HPF (NEGATIVE); WBC 0-2 /HPF (0-5)
[2017-11-02 13:14] LABS: ALBUMIN 4.6 g/dL (3.5-5.0); ALKALINE PHOSPHATASE 129 U/L (38-126); BLOOD UREA NITROGEN 13 mg/dL (9-20); CHLORIDE 106 mmol/L (98-107); Calcium 9.3 mg/dL (8.4-10.2); Carbon Dioxide 28 mmol/L (22-30); Creatinine 1 0.84 mg/dL (0.66-1.25); Glucose 107 mg/dL (74-106); LIPASE 18 U/L (23-300); Potassium 4.2 mmol/L (3.5-5.1); SGOT/AST 13 U/L (17-59); SGPT/ALT 16 U/L (0-50); SODIUM 144 mmol/L (137-145); Total Protein 7.3 g/dL (6.3-8.2)
[2017-11-02 13:35] LABS: Methadone,Urine NEGATIVE (NEGATIVE)
--- NOTE | 2017-11-02 13:36 | XRAY ---
Indication: Abdominal pain and vomiting. Comparison: Chest exam December 13, 2016. 2 views of the abdomen demonstrates minimal small and large bowel fluid leveling. No focal bowel dilatation or obstruction. Mild diffuse scattered colonic fecal debris throughout. Solid organs osseous structures unremarkable. Inguinal AP chest demonstrates normal heart, lungs, and bony thorax. Impression: 1. Minimal small and large bowel fluid leveling, enterocolitis versus ileus. Ileus more likely as there is fecal stasis. 2. Normal 1 view chest.
[2017-11-02 14:46] LABS: BAND 5 % (0.0-2.0); Lymphocytes 21 % (24-44); Monocyte 5 % (0.0-12.0); Neutrophils 69 % (36.-66.); Total Cells Counted 100
[2017-11-02 14:47] LABS: Platelet Estimate NORMAL (NORMAL)
[2017-11-02 15:18] VITALS: O2SAT 98
--- NOTE | 2017-11-02 15:43 | XRAY ---
Indication: Right upper abdominal pain, nausea, and vomiting. Multiple contiguous axial images obtained through the abdomen and pelvis without contrast as ordered. Comparison: None Lung bases demonstrates minimal bibasilar dependent atelectasis/scarring. No infiltrate or effusion. Heart is not enlarged. Noncontrasted stomach and bowel loops appear nonobstructed. Mild uniformly fluid distended small bowel loops with some fluid leveling, ileus versus enteritis. Mild diffuse scattered colonic fecal debris throughout. Normal appendix. No free fluid/air. Scattered small subcentimeter mesenteric nodes favoring adenitis. Nonobstructing punctate left renal calculus. Remaining liver, gallbladder, pancreas, spleen, adrenal glands, kidneys, ureters, bladder, and aorta appear unremarkable for noncontrast exam. Osseous structures intact. Impression: 1. Mild uniformly fluid distended small bowel loops with fluid leveling, ileus versus enteritis. 2. Fecal stasis without obstruction. 3. Scattered small mesenteric nodes favoring adenitis. 4. Nonobstructing left renal micro-calculus. CT DI 22.79
== END 2017-11-02 16:20 | disposition home or self-care (01) ==
LOC: ED 11:13
DX: K52.9 Noninfective gastroenteritis and colitis, unspecified (principal); R10.11 Right upper quadrant pain
CPT/HCPCS: 36000; 36415; 74022; 74176; 80053; 80307; 81000; 83605; 83690; 85025; 87086; 96360; 96374; 96375; 96376; 99284; J1885; J2405

== ENCOUNTER 2020-11-26 14:25 | Emergency (ER) | payer OTHER ==
[2020-11-26] MEDS ORDERED: Sodium Chloride 0.9% 1000 ML 1,000 ML IV STA (14:32)
[2020-11-26] MEDS ORDERED: SUBLIMAZE 100 MCG/2 ML IV ONE (14:32)
[2020-11-26] MEDS ORDERED: Zofran 4 MG/2 ML VIAL IV ONE (14:32)
[2020-11-26 14:38] VITALS: BP 157/96; PULSE 58; O2SAT 98
[2020-11-26] MEDS ORDERED: Zofran 4 MG/2 ML VIAL ONE (14:45)
[2020-11-26] MEDS ORDERED: Sodium Chloride 0.9% 1000 ML 1,000 ML ONE (14:45)
[2020-11-26] MEDS ORDERED: SUBLIMAZE 100 MCG/2 ML ONE (14:45)
[2020-11-26 14:49] LABS: Absolute Neutrophil Ct (ANC) 2.31 (1.4-6.9); BASOPHIL % 0.5 % (0.0-0.4); Basophil (Absolute #) 0.03 (0-0.4); Eosinophil % 4.9 % (0.00-5.0); Eosinophil (Absolute #) 0.31 (0-0.5); Hematocrit 46.7 % (42-50); Hemoglobin 15.7 gm/dl (12.5-18.0); Lymphocytes % 47.6 % (24.0-44.0); Mean Cell Volume 88.4 fl (78-100); Mean Corpuscular Hemoglobin 29.7 pg (26-32); Mean Corpuscular Hgb Concent. 33.6 g/dl (32-36); Mean Platelet Volume 9.4 fl (7.5-11.0); Monocyte (Absolute #) 0.65 (0.0-1.3); Monocytes % 10.3 % (0.0-12.0); Neutrophil % 36.7 % (36.0-66.0); Platelet Count 230 K/mm3 (150-450); Red Blood Count 5.28 M/mm3 (4.1-5.6); White Blood Count 6.3 K/mm3 (4.0-10.5)
[2020-11-26 15:02] LABS: ALBUMIN 4.9 g/dL (3.5-5.0); ALKALINE PHOSPHATASE 87 U/L (38-126); AMYLASE 76 U/L (30-110); ANION GAP 14.7 MEQ/L (5-15); BLOOD UREA NITROGEN 17 mg/dL (9-20); CHLORIDE 103 mmol/L (98-107); Carbon Dioxide 27 mmol/L (22-30); Creatinine 1 1.09 mg/dL (0.66-1.25); EST GLOMERULAR FILTRATION RATE > 60.0 ML/MIN; Glucose 116 mg/dL (74-106); LIPASE 81 U/L (23-300); SGOT/AST 28 U/L (17-59); SGPT/ALT 26 U/L (0-50); SODIUM 141 mmol/L (137-145); Total Protein 7.9 g/dL (6.3-8.2)
--- NOTE | 2020-11-26 15:08 | XRAY ---
Indication: Abdomen/pelvic pain. Vomiting. Multiple contiguous axial images obtained through the abdomen and pelvis without contrast. Comparison: November 02, 2017. Lung bases are clear. Heart not enlarged. Noncontrasted stomach and bowel loops nonobstructed. Normal appendix. No free fluid/air. New 3-4 mm distal left ureteral calculus just proximal to the UVJ. Proximal left ureter minimally prominent along with minimal hydronephrosis consistent with partial obstructive uropathy. Remaining liver, gallbladder, pancreas, spleen, adrenal glands, kidneys, right ureter, bladder, and aorta are unremarkable for noncontrast exam. Osseous structures intact. Impression: 1. New 3-4 mm distal left ureteral calculus producing partial obstruction. 2. Remaining CT abdomen/pelvis without contrast exam is negative.
--- NOTE | 2020-11-26 15:22 | ERPHSYRPT ---
- History of Present Illness Time Seen by Provider: 11/26/20 14:40 Historian: patient Exam Limitations: no limitations Patient Subjective Stated Complaint: Pt states that approx 40 minutes ago he began having pain in his left flank and it radiated to his left side and lower abdomen, pain was so great that he began vomiting Triage Nursing Assessment: Pt brought self to the ER, hypertensive, rates pain as 6/10, denies hx of kidney stones, reports feeling the urge to urinate often last night, denies pain with palpatation to the abdomen, denies painful urination, skin n/w/d, pulses normal, doesn't appear to be in any distress Physician History: Patient is a 30-year-old white male who presents with a sudden onset 40 minutes prior to arrival of severe left flank pain radiating into the abdomen. He had a spontaneous onset of profuse vomiting associated with this pain. He has no history of previous renal stones. He denies any fever chills or sweats onset was just prior to arrival. Timing/Duration: today Activities at Onset: none Quality: sharpness, stabbing Abdominal Pain Onset Location: flank (Left) Pain Radiation: LLQ, groin Severity of Pain-Max: severe Severity of Pain-Current: severe Modifying Factors: Improves With: vomiting Associated Symptoms: vomiting Previous symptoms: no prior history Allergies/Adverse Reactions: No Known Drug Allergies Allergy (Verified 11/26/20 14:39) Home Medications: Cetirizine HCl 10 mg PO DAILY 11/26/20 [History] Omeprazole 20 mg PO DAILY 11/26/20 [History] lisinopriL [Zestril] 30 mg PO DAILY 11/26/20 [History] Hx Tetanus, Diphtheria Vaccination/Date Given: Yes Hx Influenza Vaccination/Date Given: No Hx Pneumococcal Vaccination/Date Given: No Travel Risk - International Travel Have you traveled outside of the country in past 3 weeks: No - Coronavirus Screening Are you exhibiting any of the following symptoms?: No Close contact with a COVID-19 positive Pt in past 14-21 Days: No - Vaccine Status Have you recieved a Covid-19 vaccination: No - Review of Systems Constitutional: No Fever, No Chills Eyes: No Symptoms Ears, Nose, & Throat: No Symptoms Respiratory: No Cough, No Dyspnea Cardiac: No Chest Pain, No Edema, No Syncope Abdominal/Gastrointestinal: Vomiting, No Abdominal Pain, No Nausea, No Diarrhea Genitourinary Symptoms: Flank Pain, No Dysuria Musculoskeletal: No Back Pain, No Neck Pain Skin: No Rash Neurological: No Dizziness, No Focal Weakness, No Sensory Changes Psychological: No Symptoms Endocrine: No Symptoms All Other Systems: Reviewed and Negative - Past Medical History Pertinent Past Medical History: Yes Cardiac History: Hypertension Other Medical History: 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 - Past Surgical History Past Surgical History: Yes Other Surgical History: T&A - Social History Smoking Status: Current every day smoker How long have you smoked: 5 Exposure to second hand smoke: Yes Drug Use: marijuana Patient Lives Alone: No - Nursing Vital Signs Nursing Vital Signs: Initial Vital Signs Temperature 97.3 F 11/26/20 14:31 Pulse Rate 58 L 11/26/20 14:31 Blood Pressure 157/96 11/26/20 14:31 O2 Sat by Pulse Oximetry 98 11/26/20 14:31 Pain Scale Pain Intensity 6 - Physical Exam General Appearance: mild distress, alert Eye Exam: PERRL/EOMI, eyes nml inspection Ears, Nose, Throat Exam: normal ENT inspection, pharynx normal, moist mucous membranes Neck Exam: normal inspection, non-tender, supple, full range of motion Respiratory Exam: normal breath sounds, lungs clear, No respiratory distress Cardiovascular Exam: regular rate/rhythm, normal heart sounds Gastrointestinal/Abdomen Exam: soft, No tenderness, No mass Back Exam: normal inspection, normal range of motion, No CVA tenderness, No vertebral tenderness Extremity Exam: normal inspection, normal range of motion, pelvis stable Neurologic Exam: alert, oriented x 3, cooperative, normal mood/affect, nml cerebellar function, sensation nml, No motor deficits Skin Exam: normal color, warm, dry SpO2: 98 - Course Nursing assessment & vital signs reviewed: Yes - CT Exams Abdomen/Pelvis CT Interpretation: Other (CT scan shows a 3 to 4 mm distal left ureteral calculus producing partial obstruction remainder of exam negative) Ordered Tests: Active Orders 24 hr Category Date Time Status IV Insertion STAT Care 11/26/20 14:32 Active ABDOMEN AND PELVIS W/0 CONTRAS [CT] Stat Exams 11/26/20 14:32 Completed AMYLASE Stat Lab 11/26/20 02:45 Completed CBC W DIFF Stat Lab 11/26/20 14:32 Completed CMP Stat Lab 11/26/20 02:45 Completed LIPASE Stat Lab 11/26/20 02:45 Completed Lactic Acid Stat Lab 11/26/20 02:45 Completed UA W/RFX UR CULTURE Stat Lab 11/26/20 14:32 Ordered Medication Summary Generic Name Dose Route Start Last Admin Trade Name Ian PRN Reason Stop Dose Admin Sodium Chloride 1,000 mls @ 999 mls/hr 11/26/20 14:32 11/26/20 14:47 Sodium Chloride 0.9% 1000 Ml IV 11/26/20 15:32 999 mls/hr .Q1H1M STA Administration Discontinued Medications Generic Name Dose Route Start Last Admin Trade Name Ian PRN Reason Stop Dose Admin Fentanyl Citrate 50 mcg 11/26/20 14:32 11/26/20 14:47 Sublimaze 100 Mcg/2 Ml IV 11/26/20 14:33 50 mcg STAT ONE Administration Fentanyl Citrate Confirm 11/26/20 14:45 Sublimaze 100 Mcg/2 Ml Administered 11/26/20 14:46 Dose 100 mcg .ROUTE .STK-MED ONE Sodium Chloride Confirm 11/26/20 14:45 Sodium Chloride 0.9% 1000 Ml Administered 11/26/20 14:46 Dose 1,000 mls @ ud .ROUTE .STK-MED ONE Ondansetron HCl 4 mg 11/26/20 14:32 11/26/20 14:47 Zofran 4 Mg/2 Ml Vial IV 11/26/20 14:33 4 mg STAT ONE Administration Ondansetron HCl Confirm 11/26/20 14:45 Zofran 4 Mg/2 Ml Vial Administered 11/26/20 14:46 Dose 4 mg .ROUTE .STK-MED ONE Lab/Rad Data: Laboratory Result Diagrams 11/26/20 14:32 11/26/20 02:45 Laboratory Results 11/26/20 11/26/20 11/26/20 Range/Units 14:32 02:45 02:45 WBC 6.3 (4.0-10.5) K/mm3 RBC 5.28 (4.1-5.6) M/mm3 Hgb 15.7 (12.5-18.0) gm/dl Hct 46.7 (42-50) % MCV 88.4 (78-100) fl MCH 29.7 (26-32) pg MCHC 33.6 (32-36) g/dl RDW 13.0 (11.5-14.0) % Plt Count 230 (150-450) K/mm3 MPV 9.4 (7.5-11.0) fl Gran % 36.7 (36.0-66.0) % Eos # (Auto) 0.31 (0-0.5) Absolute Lymphs (auto) 3.00 (1.0-4.6) Absolute Monos (auto) 0.65 (0.0-1.3) Lymphocytes % 47.6 H (24.0-44.0) % Monocytes % 10.3 (0.0-12.0) % Eosinophils % 4.9 (0.00-5.0) % Basophils % 0.5 (0.0-0.4) % Absolute Granulocytes 2.31 (1.4-6.9) Basophils # 0.03 (0-0.4) Sodium 141 (137-145) mmol/L Potassium 4.0 (3.5-5.1) mmol/L Chloride 103 (98-107) mmol/L Carbon Dioxide 27 (22-30) mmol/L Anion Gap 14.7 (5-15) MEQ/L BUN 17 (9-20) mg/dL Creatinine 1.09 (0.66-1.25) mg/dL Estimated GFR > 60.0 ML/MIN Glucose 116 H (74-106) mg/dL Lactic Acid 1.1 (0.4-2.0) Calcium 10.0 (8.4-10.2) mg/dL Total Bilirubin 1.20 (0.2-1.3) mg/dL AST 28 (17-59) U/L ALT 26 (0-50) U/L Alkaline Phosphatase 87 (38-126) U/L Serum Total Protein 7.9 (6.3-8.2) g/dL Albumin 4.9 (3.5-5.0) g/dL Amylase 76 (30-110) U/L Lipase 81 (23-300) U/L - Progress Progress: improved - Departure Departure Disposition: Home Clinical Impression: Left ureteral stone Condition: Stable Critical Care Time: No Referrals: JOSÉ MANUEL CAMPOS [Primary Care Provider] - Instructions: Kidney Stones (DC) Prescriptions: Tamsulosin HCl 0.4 mg [Flomax 0.4 MG] 0.4 mg PO DAILY 5 Days #5 cap Oxycodone HCl/Acetaminophen [Percocet 10-325 mg Tablet] 1 each PO Q6H 3 Days #12 tablet MDD 4 Ondansetron HCl [Zofran] 4 mg PO TID PRN #10 tablet PRN Reason: Nausea/Vomiting
== END 2020-11-26 15:37 | disposition home or self-care (01) ==
LOC: ED 14:25
DX: N20.1 Calculus of ureter (principal)
CPT/HCPCS: 36415; 74176; 80053; 82150; 83605; 83690; 85025; 96374; 96375; 99284; J2405; J3010

== ENCOUNTER 2020-11-30 17:28 | Emergency (ER) | payer OTHER ==
[2020-11-30 17:54] VITALS: O2SAT 98
[2020-11-30] MEDS ORDERED: TORAdol 30 mg Injection IV ONE (18:14)
[2020-11-30] MEDS ORDERED: Sodium Chloride 0.9% 1000 ML 1,000 ML IV STA (18:14)
[2020-11-30] MEDS ORDERED: Zofran 4 MG/2 ML VIAL IV ONE (18:14)
[2020-11-30 18:30] LABS: Appearance CLEAR (CLEAR); Bilirubin NEGATIVE (NEGATIVE); Blood SMALL Ery/ul (0-5); Glucose NEGATIVE (NEGATIVE); Ketones NEGATIVE (NEGATIVE); Leukocyte Esterase NEGATIVE (NEGATIVE); Mucus SLIGHT /HPF (NEGATIVE); Nitrite NEGATIVE (NEGATIVE); Protein,Urine Dip NEGATIVE (Negative); RBC 0-2 /HPF (0-2); Specific Gravity 1.013 (1.005-1.025); Urobilinogen NEGATIVE mg/dL (0-1); WBC 0-2 /HPF (0-5)
--- NOTE | 2020-11-30 18:32 | ERPHSYRPT ---
- History of Present Illness Time Seen by Provider: 11/30/20 17:34 Historian: patient Exam Limitations: no limitations Patient Subjective Stated Complaint: L flank pain Triage Nursing Assessment: pt to ED c/o L flank pain 09/03. was in ED 11/26/20 and dx with kidney stone, L side. pt states he has been using strainer and has not noticed stone so far. has been taking flow max and percocet since visit in ED which has helped alleviate pain but pt is out of those now. "sharp pain when I dont take anything but more just uncomfortable throbbing when I do take something." Physician History: 30 years old male with history of kidney stone who was recently evaluated in the ER, is given Flomax and pain medication presented back with increasing pain since 3 AM today moderate to severe intensity, sharp nature in left flank with associated nausea. Denies any difficulty urination. Patient has been straining his urine but did not notice any passage of stone. No fever or chills reported. Timing/Duration: week(s) (1), gradual onset, worse Activities at Onset: rest Quality: sharpness Abdominal Pain Onset Location: flank Severity of Pain-Max: moderate Severity of Pain-Current: moderate Modifying Factors: Worsens With: coughing, movement, palpation Associated Symptoms: nausea, vomiting Previous symptoms: same symptoms as today Allergies/Adverse Reactions: No Known Drug Allergies Allergy (Verified 11/30/20 17:54) Home Medications: lisinopriL [Zestril] 30 mg PO DAILY 11/26/20 [History] Hx Tetanus, Diphtheria Vaccination/Date Given: Yes Hx Influenza Vaccination/Date Given: No Hx Pneumococcal Vaccination/Date Given: No Immunizations Up to Date: No Travel Risk - International Travel Have you traveled outside of the country in past 3 weeks: No - Coronavirus Screening Are you exhibiting any of the following symptoms?: No Close contact with a COVID-19 positive Pt in past 14-21 Days: No - Vaccine Status Have you recieved a Covid-19 vaccination: No - Review of Systems Constitutional: No Symptoms Eyes: No Symptoms Ears, Nose, & Throat: No Symptoms Respiratory: No Symptoms Cardiac: No Symptoms Abdominal/Gastrointestinal: Abdominal Pain, Nausea Genitourinary Symptoms: Flank Pain Musculoskeletal: No Symptoms Skin: No Symptoms Neurological: No Symptoms Psychological: No Symptoms Endocrine: No Symptoms Hematologic/Lymphatic: No Symptoms Immunological/Allergic: No Symptoms - Past Medical History Pertinent Past Medical History: Yes Cardiac History: Hypertension Other Medical History: 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 - Past Surgical History Past Surgical History: Yes Other Surgical History: T&A - Social History Smoking Status: Current every day smoker How long have you smoked: 5 Exposure to second hand smoke: Yes Drug Use: none Patient Lives Alone: No - Nursing Vital Signs Nursing Vital Signs: Initial Vital Signs Pulse Rate 87 11/30/20 17:47 Respiratory Rate 16 11/30/20 17:47 Blood Pressure 170/97 11/30/20 17:47 O2 Sat by Pulse Oximetry 98 11/30/20 17:47 Pain Scale Pain Intensity 8 - Physical Exam General Appearance: no apparent distress Eye Exam: eyes nml inspection Ears, Nose, Throat Exam: normal ENT inspection, pharynx normal Neck Exam: normal inspection, supple, full range of motion Respiratory Exam: normal breath sounds, lungs clear Cardiovascular Exam: regular rate/rhythm, normal heart sounds Gastrointestinal/Abdomen Exam: soft, normal bowel sounds, tenderness (Left flank), No guarding Back Exam: normal inspection, normal range of motion, CVA tenderness Extremity Exam: normal inspection, normal range of motion Neurologic Exam: alert, oriented x 3, cooperative Skin Exam: normal color SpO2 Interpretation: normal SpO2: 98 O2 Delivery: Room Air Ordered Tests: Active Orders 24 hr Category Date Time Status IV Insertion STAT Care 11/30/20 18:14 Active ABDOMEN AND PELVIS W/0 CONTRAS [CT] Stat Exams 11/30/20 18:14 Taken CBC W DIFF Stat Lab 11/30/20 18:44 Completed CMP Stat Lab 11/30/20 18:44 Completed UA W/RFX UR CULTURE Stat Lab 11/30/20 18:20 Completed Medication Summary Discontinued Medications Generic Name Dose Route Start Last Admin Trade Name Freq PRN Reason Stop Dose Admin Sodium Chloride 1,000 mls @ 999 mls/hr 11/30/20 18:14 11/30/20 19:12 Sodium Chloride 0.9% 1000 Ml IV 11/30/20 19:14 999 mls/hr .Q1H1M STA Administration Sodium Chloride Confirm 11/30/20 18:59 Sodium Chloride 0.9% 1000 Ml Administered 11/30/20 19:00 Dose 1,000 mls @ ud .ROUTE .STK-MED ONE Ketorolac Tromethamine 30 mg 11/30/20 18:14 11/30/20 19:11 Toradol 30 Mg Injection IV 11/30/20 18:15 30 mg STAT ONE Administration Ketorolac Tromethamine Confirm 11/30/20 18:59 Toradol 30 Mg Injection Administered 11/30/20 19:00 Dose 30 mg .ROUTE .STK-MED ONE Ondansetron HCl 4 mg 11/30/20 18:14 11/30/20 19:11 Zofran 4 Mg/2 Ml Vial IV 11/30/20 18:15 4 mg STAT ONE Administration Ondansetron HCl Confirm 11/30/20 18:59 Zofran 4 Mg/2 Ml Vial Administered 11/30/20 19:00 Dose 4 mg .ROUTE .STK-MED ONE Tamsulosin HCl 0.8 mg 11/30/20 19:15 11/30/20 19:28 Flomax 0.4 Mg PO 11/30/20 19:16 0.8 mg ONCE STA Administration Tamsulosin HCl Confirm 11/30/20 19:25 Flomax 0.4 Mg Administered 11/30/20 19:26 Dose 0.8 mg .ROUTE .STK-MED ONE Lab/Rad Data: Laboratory Result Diagrams 11/30/20 18:44 11/30/20 18:44 Laboratory Results 11/30/20 11/30/20 11/30/20 Range/Units 18:44 18:44 18:20 WBC 4.7 (4.0-10.5) K/mm3 RBC 5.40 (4.1-5.6) M/mm3 Hgb 16.0 (12.5-18.0) gm/dl Hct 47.0 (42-50) % MCV 87.0 (78-100) fl MCH 29.6 (26-32) pg MCHC 34.0 (32-36) g/dl RDW 12.8 (11.5-14.0) % Plt Count 206 (150-450) K/mm3 MPV 9.4 (7.5-11.0) fl Gran % 58.3 (36.0-66.0) % Eos # (Auto) 0.19 (0-0.5) Absolute Lymphs (auto) 1.28 (1.0-4.6) Absolute Monos (auto) 0.49 (0.0-1.3) Lymphocytes % 27.1 (24.0-44.0) % Monocytes % 10.4 (0.0-12.0) % Eosinophils % 4.0 (0.00-5.0) % Basophils % 0.2 (0.0-0.4) % Absolute Granulocytes 2.76 (1.4-6.9) Basophils # 0.01 (0-0.4) Sodium 138 (137-145) mmol/L Potassium 4.2 (3.5-5.1) mmol/L Chloride 106 (98-107) mmol/L Carbon Dioxide 23 (22-30) mmol/L Anion Gap 14.2 (5-15) MEQ/L BUN 16 (9-20) mg/dL Creatinine 0.92 (0.66-1.25) mg/dL Estimated GFR > 60.0 ML/MIN Glucose 104 (74-106) mg/dL Calcium 9.7 (8.4-10.2) mg/dL Total Bilirubin 1.10 (0.2-1.3) mg/dL AST 30 (17-59) U/L ALT 25 (0-50) U/L Alkaline Phosphatase 73 (38-126) U/L Serum Total Protein 7.7 (6.3-8.2) g/dL Albumin 4.6 (3.5-5.0) g/dL Urine Color YELLOW (YELLOW) Urine Appearance CLEAR (CLEAR) Urine pH 5.0 (5-6) Ur Specific [place] 1.013 (1.005-1.025) Urine Protein NEGATIVE (Negative) Urine Ketones NEGATIVE (NEGATIVE) Urine Blood SMALL (0-5) Corey/ul Urine Nitrite NEGATIVE (NEGATIVE) Urine Bilirubin NEGATIVE (NEGATIVE) Urine Urobilinogen NEGATIVE (0-1) mg/dL Ur Leukocyte Esterase NEGATIVE (NEGATIVE) Urine WBC (Auto) 0-2 (0-5) /HPF Urine RBC (Auto) 0-2 (0-2) /HPF U Epithel Cells (Auto) NONE (FEW) /HPF Urine Bacteria (Auto) NONE (NEGATIVE) /HPF Urine Mucus (Auto) SLIGHT (NEGATIVE) /HPF Urine Culture Reflexed NO (NO) Urine Glucose NEGATIVE (NEGATIVE) mg/dL - Progress Progress: improved, re-examined Progress Note: 11/30/20 20:19 Given fluids along with Toradol and Flomax, on reevaluation feeling better. Normal white count, grossly unremarkable chemistries. No UTI. Repeat CT showed he still have a 3.4 mm left distal ureteral stone with minimal hydroureteric nephrosis without any obvious obstruction. Recommended continue with Flomax and Tylenol/ibuprofen and outpatient urology follow-up. Discussed signs symptoms of worsening needing return to ER which he seems understanding. Counseled pt/family regarding: lab results, diagnosis, need for follow-up, rad results - Departure Departure Disposition: Home Clinical Impression: Left ureteral stone Condition: Stable Critical Care Time: No Referrals: JOSÉ MANUEL CAMPOS [Primary Care Provider] - Follow Up with PCP/3 days ZAC COYNE [COURTESY STAFF] - (Call tomorrow for reevaluation) Instructions: Kidney Stones (DC) Additional Instructions: Take Tylenol/ibuprofen as needed for pain. Drink plenty of fluids. Follow-up with primary care and urology for reevaluation. Return to ER for intractable pain, vomiting/fever chills or difficulty urination/hematuria etc. Prescriptions: Ibuprofen 600 mg PO Q6HPRN PRN 10 Days #20 tablet PRN Reason: Pain Tamsulosin HCl 0.4 mg [Flomax 0.4 MG] 0.4 mg PO DAILY #30 cap
[2020-11-30 18:47] LABS: Absolute Neutrophil Ct (ANC) 2.76 (1.4-6.9); BASOPHIL % 0.2 % (0.0-0.4); Basophil (Absolute #) 0.01 (0-0.4); Eosinophil (Absolute #) 0.19 (0-0.5); Lymphocyte (Absolute #) 1.28 (1.0-4.6); Lymphocytes % 27.1 % (24.0-44.0); Mean Corpuscular Hemoglobin 29.6 pg (26-32); Mean Platelet Volume 9.4 fl (7.5-11.0); Monocyte (Absolute #) 0.49 (0.0-1.3); Monocytes % 10.4 % (0.0-12.0); Neutrophil % 58.3 % (36.0-66.0); Platelet Count 206 K/mm3 (150-450); Red Cell Distribution Width 12.8 % (11.5-14.0); White Blood Count 4.7 K/mm3 (4.0-10.5)
[2020-11-30] MEDS ORDERED: Sodium Chloride 0.9% 1000 ML 1,000 ML ONE (18:59)
[2020-11-30] MEDS ORDERED: TORAdol 30 mg Injection ONE (18:59)
[2020-11-30] MEDS ORDERED: Zofran 4 MG/2 ML VIAL ONE (18:59)
[2020-11-30 19:03] LABS: ALBUMIN 4.6 g/dL (3.5-5.0); ALKALINE PHOSPHATASE 73 U/L (38-126); ANION GAP 14.2 MEQ/L (5-15); BLOOD UREA NITROGEN 16 mg/dL (9-20); CHLORIDE 106 mmol/L (98-107); Calcium 9.7 mg/dL (8.4-10.2); Carbon Dioxide 23 mmol/L (22-30); Creatinine 1 0.92 mg/dL (0.66-1.25); EST GLOMERULAR FILTRATION RATE > 60.0 ML/MIN; Glucose 104 mg/dL (74-106); Potassium 4.2 mmol/L (3.5-5.1); SGOT/AST 30 U/L (17-59); SGPT/ALT 25 U/L (0-50); SODIUM 138 mmol/L (137-145); Total Protein 7.7 g/dL (6.3-8.2)
[2020-11-30] MEDS ORDERED: Flomax 0.4 MG PO STA (19:15)
[2020-11-30] MEDS ORDERED: Flomax 0.4 MG ONE (19:25)
[2020-11-30 20:52] VITALS: BP 127/73; PULSE 88
--- NOTE | 2020-12-01 08:48 | XRAY ---
Indication: Left flank pain. Known kidney stone. Multiple contiguous axial images obtained through the abdomen and pelvis without contrast using renal stone protocol. Comparison: November 26, 2020. Lung bases remain clear. Heart is not enlarged. Previous 3-4 mm distal left ureteral calculus has progressed now seen at the level of the UVJ with grossly stable minimal left hydronephrosis/hydroureter. No perinephric fluid/stranding. Noncontrasted stomach and bowel loops nonobstructed with normal appendix. There is now mild diffuse scattered colonic fecal debris including rectum. No free fluid/air. Remaining liver, gallbladder, pancreas, spleen, adrenal glands, right kidney, right ureter, bladder, and aorta are unremarkable for noncontrast exam. Impression: 1. 3-4 mm left UVJ calculus again producing partial obstruction as detailed. 2. New diffuse fecal stasis. Comment: Preliminary interpretation made by C. No critical discrepancy.
== END 2020-11-30 20:58 | disposition home or self-care (01) ==
LOC: ED 17:28
DX: N20.1 Calculus of ureter (principal)
CPT/HCPCS: 36000; 36415; 74176; 80053; 81001; 85025; 96360; 96374; 96375; 99284; J1885; J2405; A9270-GY

== ENCOUNTER 2021-01-17 13:56 | Emergency (ER) | payer OTHER ==
--- NOTE | 2021-01-17 14:01 | ERPHSYRPT ---
- History of Present Illness Time Seen by Provider: 01/17/21 14:00 Source: patient Exam Limitations: no limitations Physician History: This is a 30-year-old white male who does not have a family practice doctor and presents with 2-day history of sore throat and mild cough. He states that this time a year he gets strep pharyngitis and bronchitis. He does have body aches. He has been exposed to his son who recently tested positive for RSV. He has no known other exposures to any bacterial or viral illnesses. Patient wants to be treated for strep pharyngitis and bronchitis. He also agrees to Covid 19 test. He does not want a chest x-ray or any other viral or strep testing that was offered to him. Timing/Duration: day(s) (2) Cough Quality/Degree: mild Possible Cause: occasional episodes Modifying Factors: Improves With: coughing Associated Symptoms: cough, muscle aches, sore throat, No chest pain/soreness, No shortness of breath Allergies/Adverse Reactions: No Known Drug Allergies Allergy (Verified 01/17/21 13:59) Home Medications: lisinopriL [Zestril] 30 mg PO DAILY 11/26/20 [History] Omeprazole 20 mg PO DAILY 01/17/21 [History] Hx Tetanus, Diphtheria Vaccination/Date Given: Yes Hx Influenza Vaccination/Date Given: No Hx Pneumococcal Vaccination/Date Given: No Travel Risk - International Travel Have you traveled outside of the country in past 3 weeks: No - Coronavirus Screening Are you exhibiting any of the following symptoms?: No Symptoms: Cough: New Onset Close contact with a COVID-19 positive Pt in past 14-21 Days: No - Vaccine Status Have you recieved a Covid-19 vaccination: No - Review of Systems Constitutional: No Symptoms Eyes: No Symptoms Ears, Nose, & Throat: Throat Pain Respiratory: Cough Cardiac: No Symptoms Abdominal/Gastrointestinal: No Symptoms Genitourinary Symptoms: No Symptoms Musculoskeletal: No Symptoms Skin: No Symptoms Neurological: No Symptoms Psychological: No Symptoms Endocrine: No Symptoms Hematologic/Lymphatic: No Symptoms Immunological/Allergic: No Symptoms All Other Systems: Reviewed and Negative - Past Medical History Pertinent Past Medical History: Yes Cardiac History: Hypertension Other Medical History: 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 - Past Surgical History Past Surgical History: Yes Other Surgical History: T&A - Social History Smoking Status: Current every day smoker How long have you smoked: 5 Exposure to second hand smoke: Yes Drug Use: none Patient Lives Alone: No - Nursing Vital Signs Nursing Vital Signs: Initial Vital Signs Temperature 97.3 F 01/17/21 14:01 Pulse Rate 69 01/17/21 14:01 Respiratory Rate 18 01/17/21 14:01 Blood Pressure 163/100 01/17/21 14:01 O2 Sat by Pulse Oximetry 97 01/17/21 14:01 Pain Scale Pain Intensity 8 - Physical Exam General Appearance: no apparent distress, alert Eye Exam: PERRL/EOMI, eyes nml inspection Ears, Nose, Throat Exam: TMs normal, moist mucous membranes, pharyngeal erythema Neck Exam: normal inspection, non-tender, supple, full range of motion Respiratory Exam: normal breath sounds, lungs clear, airway intact, No chest t enderness, No respiratory distress Cardiovascular Exam: regular rate/rhythm, normal heart sounds, normal peripheral pulses Gastrointestinal/Abdomen Exam: soft, normal bowel sounds, No tenderness Rectal Exam: not done Back Exam: normal inspection, normal range of motion, No CVA tenderness, No vertebral tenderness Extremity Exam: normal inspection, normal range of motion, pelvis stable Neurologic Exam: alert, oriented x 3, cooperative, 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 tested, normal mood/affect, nml cerebellar function, nml station & gait, sensation nml Skin Exam: normal color, warm, dry Lymphatic Exam: No adenopathy SpO2 Interpretation: normal O2 Delivery: Room Air - Course Nursing assessment & vital signs reviewed: Yes - Progress Progress: unchanged Air Movement: good Blood Culture(s) Obtained: No Antibiotics given: No Counseled pt/family regarding: diagnosis, need for follow-up - Departure Departure Disposition: Home Clinical Impression: Pharyngitis, Cough Condition: Stable Critical Care Time: No Referrals: JOSÉ MANUEL CAMPOS [Primary Care Provider] - Additional Instructions: Drink plenty of fluids. Take your medication as prescribed. Follow-up with a primary care doctor for further management. Quarantine yourself until the results of your COVID-19 test come back. If you have not heard about your test results by 01/20/2021, call the hospital and ask for medical control to provide you with the results. Do not call the emergency department for your COVID-19 results. Prescriptions: Prednisone 10 mg [Deltasone 10 mg] 10 mg PO TID #12 tablet Azithromycin 250 mg [Zithromax 250 MG TABLET] 250 mg PO ZPACK #6 tablet
[2021-01-17 14:07] VITALS: O2SAT 96
[2021-01-17 14:35] VITALS: BP 145/84; PULSE 100
== END 2021-01-17 14:44 | disposition home or self-care (01) ==
LOC: ED 13:56
DX: J02.9 Acute pharyngitis, unspecified (principal); R05.9 Cough, unspecified
CPT/HCPCS: 99283; U0003

== ENCOUNTER 2023-02-23 21:50 | Emergency (ER) | payer BC, OTHER ==
--- NOTE | 2023-02-23 21:54 | ERPHSYRPT ---
- History of Present Illness Time Seen by Provider: 02/23/23 21:54 Historian: patient Exam Limitations: no limitations Physician History: This is a 32-year-old overweight white male patient of Dr. Maxwell who was at work today and noticed blood on his stool and in the toilet water 4 times today with bowel movements. Patient has had this in the past and he received steroid suppositories which helped resolve this issue. Patient has no bleeding disorders. Patient has no clotting disorders. Patient has no known liver disease. He is not on excessive aspirin or NSAIDs. Patient has never had a colonoscopy. Patient does have a history of hypertension and gastroesophageal reflux disease. In addition, in the last week or so he had started on a Z-Alex and Medrol Dosepak which she completed 3 days ago for cough and congestion symptoms. He still has an albuterol inhaler which she received several days ago as well. He seemed to be getting better but then in the last few days his cough has become more persistent. He denies chest pain. He denies shortness of rahul ath. He has no abdominal pain. He has no known exposures to individuals who have been diagnosed with COVID or other viral illnesses. Timing/Duration: today, worse Severity of Pain-Max: none Severity of Pain-Current: none Associated Symptoms: other (Blood on stool and in toilet water with bowel mov ement) Previous symptoms: same symptoms as today, recently seen (For his cough and congestion symptoms), recently treated (For his cough and congestion symptoms) Allergies/Adverse Reactions: No Known Drug Allergies Allergy (Verified 02/23/23 22:01) Home Medications: Amlodipine Besylate [Norvasc] 10 mg PO DAILY 02/23/23 [History] Metoprolol Succinate 25 mg Xl* [Toprol-Xl 25MG Tablets] 25 mg PO DAILY 02/23/23 [History] PANTOPRAZOLE 40 mg Tablet [Protonix 40MG Tablet] 40 mg PO DAILY 02/23/23 [History] Hx Tetanus, Diphtheria Vaccination/Date Given: Yes Hx Influenza Vaccination/Date Given: No Hx Pneumococcal Vaccination/Date Given: No Travel Risk - International Travel Have you traveled outside of the country in past 3 weeks: No - Coronavirus Screening Are you exhibiting any of the following symptoms?: No Close contact with a COVID-19 positive Pt in past 14-21 Days: No - Vaccine Status Have you recieved a Covid-19 vaccination: No - Review of Systems Constitutional: No Symptoms Eyes: No Symptoms Ears, Nose, & Throat: No Symptoms Respiratory: Cough Cardiac: No Symptoms Abdominal/Gastrointestinal: Hematochezia (With bowel movement) Genitourinary Symptoms: No Symptoms Musculoskeletal: No Symptoms Skin: No Symptoms Neurological: No Symptoms Psychological: No Symptoms Endocrine: No Symptoms Hematologic/Lymphatic: No Symptoms Immunological/Allergic: No Symptoms All Other Systems: Reviewed and Negative - Past Medical History Pertinent Past Medical History: Yes Cardiac History: Hypertension Other Medical History: 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 - Past Surgical History Past Surgical History: Yes Other Surgical History: T&A - Social History Smoking Status: Current every day smoker How long have you smoked: 5 Exposure to second hand smoke: Yes Drug Use: none Patient Lives Alone: No - Nursing Vital Signs Nursing Vital Signs: Initial Vital Signs Temperature 99.5 F 02/23/23 21:55 Pulse Rate 100 H 02/23/23 21:55 Respiratory Rate 20 02/23/23 21:55 Blood Pressure 139/77 02/23/23 21:55 O2 Sat by Pulse Oximetry 91 L 02/23/23 21:55 Pain Scale Pain Intensity 4 - Physical Exam General Appearance: no apparent distress, alert, anxiety Eye Exam: PERRL/EOMI Ears, Nose, Throat Exam: normal ENT inspection, moist mucous membranes Neck Exam: normal inspection, non-tender, supple, full range of motion Respiratory Exam: normal breath sounds, lungs clear, airway intact, No chest tenderness, No respiratory distress Cardiovascular Exam: regular rate/rhythm, normal heart sounds, normal peripheral pulses Gastrointestinal/Abdomen Exam: soft, normal bowel sounds, No tenderness Rectal Exam: not done Back Exam: normal inspection, normal range of motion, No CVA tenderness, No vertebral tenderness Extremity Exam: normal inspection, normal range of motion, pelvis stable Neurologic Exam: alert, oriented x 3, 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, 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, n ormal mood/affect, nml cerebellar function, nml station & gait, sensation nml Skin Exam: normal color, warm, dry Lymphatic Exam: No adenopathy SpO2 Interpretation: hypoxic O2 Delivery: Room Air - Course Nursing assessment & vital signs reviewed: Yes Ordered Tests: Active Orders 24 hr Category Date Time Status CHEST 1 VIEW (PORTABLE) Stat Exams 02/23/23 22:11 Taken CBC W DIFF Stat Lab 02/23/23 22:20 Completed CMP Stat Lab 02/23/23 22:20 Completed PROTIME WITH INR Stat Lab 02/23/23 22:20 Completed Respiratory Therapy Assessment DAILY RT 02/23/23 22:54 Completed Medication Summary Discontinued Medications Generic Name Dose Route Start Last Admin Trade Name Ian PRN Reason Stop Dose Admin Hydrocodone Bitart/Acetaminophen 10 ml 02/23/23 22:32 02/23/23 22:41 Hydrocodone/Acetaminophen 5 Ml Udcup PO 02/23/23 22:33 10 ml STAT STA Administration Hydrocodone Bitart/Acetaminophen Confirm 02/23/23 22:37 Hydrocodone/Acetaminophen 5 Ml Udcup Administered 02/23/23 22:38 Dose 5 ml .ROUTE .STK-MED ONE Hydrocodone Bitart/Acetaminophen Confirm 02/23/23 22:37 Hydrocodone/Acetaminophen 5 Ml Udcup Administered 02/23/23 22:38 Dose 5 ml .ROUTE .STK-MED ONE Albuterol/Ipratropium 3 ml 02/23/23 22:54 02/23/23 23:00 Ipratropium/Albuterol Sulfate 3 Ml Ampul.Neb IH 02/23/23 22:55 3 ml STAT ONE Administration Albuterol/Ipratropium Confirm 02/23/23 22:58 Ipratropium/Albuterol Sulfate 3 Ml Ampul.Neb Administered 02/23/23 22:59 Dose 3 ml IH .STK-MED ONE Ceftriaxone Sodium 1,000 mg 02/23/23 22:50 Ceftriaxone Sodium 1000 Mg Inj Vial IM 02/23/23 22:51 STAT ONE Methylprednisolone Sodium 0 mg 02/23/23 22:32 02/23/23 22:42 Succinate 125 mg/ Sterile IM 02/23/23 22:33 125 mg Water 2 ml STAT ONE Administration Methylprednisolone Sodium Succinate Confirm 02/23/23 22:37 Methylprednis Sod Succ 125 Mg/2 Ml Vial Administered 02/23/23 22:38 Dose 125 mg .ROUTE .STK-MED ONE Sterile Water Confirm 02/23/23 22:37 Water For Injection,Sterile 10 Ml Vial Administered 02/23/23 22:38 Dose 10 ml IJ .STK-MED ONE Lab/Rad Data: Laboratory Result Diagrams 02/23/23 22:20 02/23/23 22:20 Laboratory Results 02/23/23 02/23/23 02/23/23 Range/Units 22:20 22:20 22:20 WBC (4.0-10.5) x10^3/uL RBC (4.1-5.6) x10^6/uL Hgb (12.5-18.0) g/dL Hct (42-50) % MCV (78-100) fL MCH (26-32) pg MCHC (32-36) g/dL RDW (11.5-14.0) % Plt Count (150-450) x10^3/uL MPV (7.5-11.0) fL Gran % (36.0-66.0) % Immature Gran % (Auto) (0.00-0.4) % Nucleat RBC Rel Count (0.00-0.1) % Eos # (Auto) (0-0.5) x10^3/uL Immature Gran # (Auto) (0.00-0.03) x10^3u/L Absolute Lymphs (auto) (1.0-4.6) x10^3/uL Absolute Monos (auto) (0.0-1.3) x10^3/uL Absolute Nucleated RBC (0.00-0.01) x10^3u/L Lymphocytes % (24.0-44.0) % Monocytes % (0.0-12.0) % Eosinophils % (0.00-5.0) % Basophils % (0.0-0.4) % Absolute Granulocytes (1.4-6.9) x10^3/uL Basophils # (0-0.4) x10^3/uL PT 9.9 (9.4-12.5) SECONDS INR 0.90 (0.8-3.0) Sodium (137-145) mmol/L Potassium (3.5-5.1) mmol/L Chloride (98-107) mmol/L Carbon Dioxide (22-30) mmol/L Anion Gap (5-15) MEQ/L BUN (9-20) mg/dL Creatinine (0.66-1.25) mg/dL Estimated GFR ML/MIN Glucose (74-106) mg/dL Calcium (8.4-10.2) mg/dL Total Bilirubin (0.2-1.3) mg/dL AST (17-59) U/L ALT (0-50) U/L Alkaline Phosphatase (38-126) U/L Serum Total Protein (6.3-8.2) g/dL Albumin (3.5-5.0) g/dL Influenza Type A Ag NEGATIVE (NEGATIVE) Influenza Type B Ag NEGATIVE (NEGATIVE) RSV (PCR) NEGATIVE (NEGATIVE) SARS-CoV-2 (PCR) NEGATIVE (NEGATIVE) Group A Strep Antibody NOT DETECTED (NEGATIVE) 02/23/23 02/23/23 Range/Units 22:20 22:20 WBC 9.2 (4.0-10.5) x10^3/uL RBC 5.34 (4.1-5.6) x10^6/uL Hgb 15.9 (12.5-18.0) g/dL Hct 47.2 (42-50) % MCV 88.4 (78-100) fL MCH 29.8 (26-32) pg MCHC 33.7 (32-36) g/dL RDW 12.1 (11.5-14.0) % Plt Count 215 (150-450) x10^3/uL MPV 9.4 (7.5-11.0) fL Gran % 74.3 H (36.0-66.0) % Immature Gran % (Auto) 0.4 (0.00-0.4) % Nucleat RBC Rel Count 0.0 (0.00-0.1) % Eos # (Auto) 0.21 (0-0.5) x10^3/uL Immature Gran # (Auto) 0.04 H (0.00-0.03) x10^3u/L Absolute Lymphs (auto) 1.55 (1.0-4.6) x10^3/uL Absolute Monos (auto) 0.53 (0.0-1.3) x10^3/uL Absolute Nucleated RBC 0.00 (0.00-0.01) x10^3u/L Lymphocytes % 16.8 L (24.0-44.0) % Monocytes % 5.8 (0.0-12.0) % Eosinophils % 2.3 (0.00-5.0) % Basophils % 0.4 (0.0-0.4) % Absolute Granulocytes 6.83 (1.4-6.9) x10^3/uL Basophils # 0.04 (0-0.4) x10^3/uL PT (9.4-12.5) SECONDS INR (0.8-3.0) Sodium 133 L (137-145) mmol/L Potassium 4.0 (3.5-5.1) mmol/L Chloride 103 (98-107) mmol/L Carbon Dioxide 23 (22-30) mmol/L Anion Gap 11.4 (5-15) MEQ/L BUN 18 (9-20) mg/dL Creatinine 0.90 (0.66-1.25) mg/dL Estimated GFR 117.8 ML/MIN Glucose 101 (74-106) mg/dL Calcium 9.2 (8.4-10.2) mg/dL Total Bilirubin 2.30 H (0.2-1.3) mg/dL AST 27 (17-59) U/L ALT 40 (0-50) U/L Alkaline Phosphatase 108 (38-126) U/L Serum Total Protein 7.4 (6.3-8.2) g/dL Albumin 4.3 (3.5-5.0) g/dL Influenza Type A Ag (NEGATIVE) Influenza Type B Ag (NEGATIVE) RSV (PCR) (NEGATIVE) SARS-CoV-2 (PCR) (NEGATIVE) Group A Strep Antibody (NEGATIVE) - Progress Progress: improved, re-examined Progress Note: 02/23/23 22:38 This patient's medical issue is 1 of moderate complexity. Level complex in the workup performed is based on review of the patient's past medical history, review of the patient's medication list, review the patient's drug allergy list, history of present illness and physical findings on examination. 02/23/23 22:43 Workup in this patient includes CBC, CMP, PTT/INR, chest x-ray, viral swabs, group A strep swab, respiratory therapy evaluation nebulizer treatment, injection intramuscularly of Solu-Medrol 125 mg, hydrocodone elixir orally. Chest x-ray was interpreted by me.? Bibasilar infiltrates Counseled pt/family regarding: lab results, diagnosis, need for follow-up, rad results Medical Desision Making - Diagnostic Testing Diagnostic test were ordered, analyzed, and reviewed by me: Yes Radiological Interpretation: Interpreted by me, Teleradiologist Report - Risk of complications The pt has a mod risk of morbidity or mortality based on: Need for prescription drug management - Departure Departure Disposition: Home Clinical Impression: Infiltrate of both lungs present on imaging study, Hematochezia Condition: Stable Critical Care Time: No Referrals: EMI MAXWELL MD [Primary Care Provider] - Follow up/PCP as directed Additional Instructions: Drink plenty of fluids. Avoid exposure to any kind of smoke. Take your antibiotics and other medication as prescribed. Follow-up with your primary care physician tomorrow, 02/24/2023, to make arrangements for follow-up appointment in the next 3 to 5 days. Discussed with them scheduling a colonoscopy if indicated. Continue your albuterol inhaler as prescribed. Prescriptions: Hydrocortisone Acetate [Anusol-Hc] 25 mg RC BID 7 Days #14 supp.rect Cefdinir 300 mg PO BID #14 cap Prednisone 10 mg [Deltasone 10 mg] 10 mg PO TID #12 tablet Hydrocodone/Acetaminophen [Hydrocodone-Acetamn 7.5-325/15] 10 ml PO Q8H PRN #120 ml MDD 30 ml PRN Reason: Cough
[2023-02-23 22:28] VITALS: TEMP 99.5
[2023-02-23 22:30] LABS: Absolute Neutrophil Ct (ANC) 6.83 x10^3/uL (1.4-6.9); BASOPHIL % 0.4 % (0.0-0.4); Basophil (Absolute #) 0.04 x10^3/uL (0-0.4); Eosinophil % 2.3 % (0.00-5.0); Eosinophil (Absolute #) 0.21 x10^3/uL (0-0.5); Hematocrit 47.2 % (42-50); Hemoglobin 15.9 g/dL (12.5-18.0); IMMATURE GRAN # 0.04 x10^3u/L (0.00-0.03); IMMATURE GRAN % 0.4 % (0.00-0.4); Lymphocyte (Absolute #) 1.55 x10^3/uL (1.0-4.6); Lymphocytes % 16.8 % (24.0-44.0); Mean Cell Volume 88.4 fL (78-100); Mean Corpuscular Hemoglobin 29.8 pg (26-32); Mean Corpuscular Hgb Concent. 33.7 g/dL (32-36); Mean Platelet Volume 9.4 fL (7.5-11.0); Monocyte (Absolute #) 0.53 x10^3/uL (0.0-1.3); Monocytes % 5.8 % (0.0-12.0); Neutrophil % 74.3 % (36.0-66.0); Platelet Count 215 x10^3/uL (150-450); Red Blood Count 5.34 x10^6/uL (4.1-5.6); Red Cell Distribution Width 12.1 % (11.5-14.0); White Blood Count 9.2 x10^3/uL (4.0-10.5)
[2023-02-23] MEDS ORDERED: HYDROCODONE-ACETAMIN 2.5-108/5 ML SOLUTION PO STA (22:32)
[2023-02-23] MEDS ORDERED: solu-MEDROL 125 MG, Sterile H2O 10 ml 2 ML IM ONE ×2 (22:32)
[2023-02-23] MEDS ORDERED: Sterile H2O 10 ml IJ ONE (22:37)
[2023-02-23] MEDS ORDERED: HYDROCODONE-ACETAMIN 2.5-108/5 ML SOLUTION ONE ×2 (22:37)
[2023-02-23] MEDS ORDERED: solu-MEDROL ONE (22:37)
[2023-02-23 22:43] LABS: INR 0.9 (0.8-3.0); PROTIME 9.9 SECONDS (9.4-12.5)
[2023-02-23 22:45] LABS: ALBUMIN 4.3 g/dL (3.5-5.0); ANION GAP 11.4 MEQ/L (5-15); BILIRUBIN,TOTAL 2.3 mg/dL (0.2-1.3); Calcium 9.2 mg/dL (8.4-10.2); Creatinine 1 0.9 mg/dL (0.66-1.25); EST GLOMERULAR FILTRATION RATE 117.8 ML/MIN; Total Protein 7.4 g/dL (6.3-8.2)
[2023-02-23] MEDS ORDERED: Rocephin 1000 MG INJ IM ONE (22:50)
[2023-02-23] MEDS ORDERED: DUONEB 0.5-3 MG/3 ml Neb IH ONE ×2 (22:54→22:58)
[2023-02-23 23:03] VITALS: O2SAT 93
[2023-02-23 23:06] LABS: INFLUENZA A NEGATIVE (NEGATIVE); INFLUENZA B NEGATIVE (NEGATIVE); RESPIRATORY SYNCTIAL VIRUS NEGATIVE (NEGATIVE); SARS-CoV-2 Xpert Express NEGATIVE (NEGATIVE)
[2023-02-23] MEDS ORDERED: Rocephin 1000 MG INJ ONE (23:11)
[2023-02-23] MEDS ORDERED: XYLOCAINE 1% HCL 20 ML MDV ONE (23:11)
[2023-02-23 23:19] VITALS: BP 145/84; PULSE 95; RESP 14
--- NOTE | 2023-02-24 08:46 | XRAY ---
Indication: Cough. Comparison: December 13, 2016 Portable chest demonstrates new hazy bilateral mid to lower lung interstitial alveolar opacities without consolidation/large effusion. Heart not enlarged. Bony thorax intact.
== END 2023-02-23 23:38 | disposition home or self-care (01) ==
LOC: ED 21:50
DX: K92.1 Melena (principal); R91.8 Other nonspecific abnormal finding of lung field; R05.9 Cough, unspecified; I10 Essential (primary) hypertension; Z79.52 Long term (current) use of systemic steroids; Z79.891 Long term (current) use of opiate analgesic; Z79.899 Other long term (current) drug therapy; Z28.310 Unvaccinated for COVID-19; Z72.0 Tobacco use
CPT/HCPCS: 0241U; 36415; 71045; 80053; 85025; 85610; 87651; 94640; 96372; 99283; J0696; J2930; A9270-GY

== ENCOUNTER 2023-03-28 05:50 | Day surgery (SDC) | payer BC, OTHER ==
[2023-03-28] MEDS ORDERED: Lactated Ringers 1,000 ML IV SCH (06:30)
[2023-03-28 06:35] VITALS: RESP 18
[2023-03-28] MEDS ORDERED: Xylocaine-Mpf 2% 5 Ml Vial ONE (07:29)
[2023-03-28] MEDS ORDERED: DIPRIVAN 200 MG/20 ML IV ONE ×2 (07:29→07:36)
[2023-03-28] MEDS ORDERED: Versed 2 MG/2 ML Injection ONE (07:29)
[2023-03-28 08:33] VITALS: BP 151/105; PULSE 77; TEMP 97.2; O2SAT 99
--- NOTE | 2023-03-28 15:13 | OP ---
SURGERY DATE/TIME: 03/28/2023 0727 PREOPERATIVE DIAGNOSIS: Rectal bleeding. POSTOPERATIVE DIAGNOSIS: Internal hemorrhoid otherwise normal colon. PROCEDURE: Colonoscopy. SURGEON: Dr. Luis. ANESTHESIA: Medications given by anesthesia department. HISTORY: The patient is a 32-year-old white male patient who reports he has been having intermittent rectal bleeding over the past six months that was bright red in nature. He denies any pain or change in bowel habits otherwise. There is no family history of colon polyps or colon cancer. The patient was felt the need to have endoscopic evaluation. He was appraised of the risks of the procedure including the risk of perforation, phlebitis, untoward reaction to medication, bleeding and missed lesions. The patient verbalized his understanding and desired to have the procedure performed. DESCRIPTION OF PROCEDURE: The patient was given the medications by the anesthesia department. He had continuous pulse oximetry, ECG monitoring and intermittent blood pressure monitoring during the examination. He was placed in the left lateral decubitus position. A digital rectal examination was performed and revealed internal hemorrhoids, no masses and the sphincter tone was normal and a normal prostate. The flexible Olympus pediatric colonoscope was used to intubate the rectum. A view of the colon was developed sequentially to the cecum including a short distance in the terminal ileum. Upon insertion and withdrawal, including a retroflex view in the rectum was noted slight bleeding in the internal hemorrhoid that we had palpated otherwise. No masses or lesions were otherwise noted. The scope was removed from the patient who tolerated the procedure well and was sent back to OP recovery in good condition. The prep was noted to be fair to good.
== END 2023-03-28 08:35 | disposition home or self-care (01) ==
LOC: SDC 05:50
PROVIDERS: ATTEND Family Medicine
DX: K64.8 Other hemorrhoids (principal); K62.5 Hemorrhage of anus and rectum
CPT/HCPCS: J2250; J2704

== ENCOUNTER 2023-09-23 14:13 | Emergency (ER) | payer BC, OTHER ==
--- NOTE | 2023-09-23 14:33 | ERPHSYRPT ---
- History of Present Illness Time Seen by Provider: 09/23/23 14:28 Source: patient Exam Limitations: no limitations Physician History: The patient, with a history of hypertension and methamphetamine use, presents after an episode of sudden vision loss and syncope. He reports taking his blood pressure medication at 2-3 AM, and upon leaving his house later in the morning, he experienced sudden vision loss and subsequently lost consciousness. He was found by his girlfriend, who reported that he turned bennett, had a seizure, foamed at the mouth, and his eyes rolled back in his head. This episode lasted approximately 5 minutes, followed by a 10-minute period of unconsciousness with his eyes rolled back. Upon regaining consciousness, he was advised to go to the hospital but instead left in his car and ended up 40 miles away with no recollection of how he got there. He denies any chest pain, shortness of breath, abdominal pain, nausea, vomiting, or dysuria. He reports feeling a little dizzy after the episode. He also reports frequent chest pain, which he attributes to methamphetamine use. He has not used methamphetamine since 1 AM. He has relapsed four times in the past two months. He also reports increased thirst. He denies a history of diabetes. Witnessed: by family Prior Episodes: single episode today Timing/Duration: today, sudden Precipitating Factors: other (Meth use) Context: standing Loss of Consciousness: seizure Charcter of event(s): seizure activity observed, generalized, confused after event Allergies/Adverse Reactions: No Known Drug Allergies Allergy (Verified 09/23/23 14:31) Home Medications: Amlodipine Besylate [Norvasc] 10 mg PO DAILY 02/23/23 [History] Metoprolol Succinate 25 mg Xl* [Toprol-Xl 25MG Tablets] 50 mg PO BID 02/23/23 [History] PANTOPRAZOLE 40 mg Tablet [Protonix 40MG Tablet] 40 mg PO DAILY 02/23/23 [History] Buspirone HCl 5 mg [Buspar 5 mg] 15 mg PO DAILY 09/23/23 [History] buPROPion HCL [Wellbutrin Xl] 300 mg PO DAILY 09/23/23 [History] Hx Tetanus, Diphtheria Vaccination/Date Given: Yes Hx Influenza Vaccination/Date Given: No Hx Pneumococcal Vaccination/Date Given: No - Past Medical History Pertinent Past Medical History: Yes Neurological History: No Pertinent History ENT History: No Pertinent History Cardiac History: Hypertension Respiratory History: No Pertinent History Endocrine Medical History: No Pertinent History GI Medical History: GERD, GI Bleed Other Medical History: 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 - Past Surgical History Past Surgical History: Yes Neuro Surgical History: No Pertinent History Cardiac: No Pertinent History Respiratory: No Pertinent History Gastrointestinal: No Pertinent History Genitourinary: No Pertinent History Musculoskeletal: No Pertinent History Male Surgical History: No Pertinent History Other Surgical History: T&A - Social History Smoking Status: Former smoker How long have you smoked: 5 Exposure to second hand smoke: Yes Drug Use: none Patient Lives Alone: No - Review of Systems All Other Systems: Reviewed and Negative Physical Exam - Nursing Vital Signs Nursing Vital Signs: Initial Vital Signs Temperature 98.4 F 09/23/23 14:18 Pulse Rate 116 H 09/23/23 14:18 Respiratory Rate 24 09/23/23 14:18 Blood Pressure 150/99 09/23/23 14:18 O2 Sat by Pulse Oximetry 98 09/23/23 14:18 Pain Scale Pain Intensity 0 - Cantil Coma Scale Best Eye Response (Cantil): (4) open spontaneously Best Verbal Response (Nicanor): (5) oriented Best Motor Response (Cantil): (6) obeys commands Nicanor Total: 15 - Physical Exam General Appearance: no apparent distress, anxiety Eye Exam: bilateral eye: normal inspection, PERRL, EOMI Ears, Nose, Throat Exam: normal ENT inspection Neck Exam: normal inspection, supple, full range of motion Respiratory: normal breath sounds, lungs clear, airway intact, No chest tenderness, No respiratory distress Cardiovascular: normal heart sounds, tachycardia, capillary refill <2 sec, No edema Gastrointestinal: soft, No tenderness, No distention, No mass, No guarding, No ecchymosis Extremity Exam: normal inspection, No swelling, No tenderness Mental Status: alert, oriented x 3, cooperative, 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 Exam: normal hearing, normal speech, PERRL, tongue midline, No facial asymmetry, No facial paresthesias Coordination/Gait: normal finger to nose, normal gait, normal cerebellar func tion Motor/Sensory: no motor deficit, no sensory deficit, no pronator drift Skin Exam: normal color, warm, dry, No rash SpO2 Interpretation: normal O2 Delivery: Room Air - Course Nursing assessment & vital signs reviewed: Yes EKG Interpreted by Me: RATE (120), Sinus Tach, NORMAL AXIS, prolonged QT interval (QTc 482), Q-wave (II, III), Other (no J point elevation) Ordered Tests: Medication Summary Discontinued Medications Generic Name Dose Route Start Last Admin Trade Name Ian PRN Reason Stop Dose Admin Sodium Chloride 1,000 mls @ 999 mls/hr 09/23/23 14:42 09/23/23 15:57 Sodium Chloride 0.9% 1000 Ml IV 09/23/23 15:42 Infused .Q1H1M STA Infusion Sodium Chloride Confirm 09/23/23 14:50 Sodium Chloride 0.9% 1000 Ml Administered 09/23/23 14:51 Dose 1,000 mls @ ud .ROUTE .STK-MED ONE Sodium Chloride 1,000 mls @ 999 mls/hr 09/23/23 15:59 09/23/23 17:24 Sodium Chloride 0.9% 1000 Ml IV 09/23/23 16:59 Infused .Q1H1M STA Infusion Sodium Chloride Confirm 09/23/23 16:00 Sodium Chloride 0.9% 1000 Ml Administered 09/23/23 16:01 Dose 1,000 mls @ ud .ROUTE .STK-MED ONE Labetalol HCl 10 mg 09/23/23 14:53 09/23/23 15:08 Labetalol Hcl 20 Mg/4 Ml Disp.Syringe IV 09/23/23 14:54 10 mg STAT ONE Administration Labetalol HCl Confirm 09/23/23 15:05 Labetalol Hcl 20 Mg/4 Ml Disp.Syringe Administered 09/23/23 15:06 Dose 20 mg IV .STK-MED ONE Pantoprazole Sodium 40 mg 09/23/23 15:14 09/23/23 15:35 Pantoprazole 40 Mg Vial IV 09/23/23 15:15 40 mg STAT ONE Administration Pantoprazole Sodium Confirm 09/23/23 15:34 Pantoprazole 40 Mg Vial Administered 09/23/23 15:35 Dose 40 mg IV .STK-MED ONE Lab/Rad Data: Laboratory Result Diagrams 09/23/23 14:30 09/23/23 17:15 Laboratory Results 09/23/23 09/23/23 09/23/23 Range/Units 17:15 14:48 14:48 WBC (4.23-9.07) x10^3/uL RBC (4.63-6.08) x10^6/uL Hgb (13.7-17.5) g/dL Hct (40.1-51.0) % MCV (79.0-92.2) fL MCH (25.7-32.2) pg MCHC (32.3-36.5) g/dL RDW (11.6-14.4) % Plt Count (163-337) x10^3/uL MPV (9.4-12.4) fL Gran % (34.0-67.9) % Immature Gran % (Auto) (0.001-0.429) % Nucleat RBC Rel Count (0.00-0.2) % Eos # (Auto) (0.04-0.54) x10^3/uL Immature Gran # (Auto) (0.001-0.031) x10^3u/L Absolute Lymphs (auto) (1.32-3.57) x10^3/uL Absolute Monos (auto) (0.30-0.82) x10^3/uL Absolute Nucleated RBC (0.00-0.012) x10^3u/L Lymphocytes % (21.8-53.1) % Monocytes % (5.3-12.2) % Eosinophils % (0.8-7.0) % Basophils % (0.2-1.2) % Absolute Granulocytes (1.78-5.38) x10^3/uL Basophils # (0.01-0.08) x10^3/uL Sodium 140 (135-145) mmol/L Potassium 3.2 L (3.5-5.1) mmol/L Chloride 107 (98-107) mmol/L Carbon Dioxide 20 L (22-30) mmol/L Anion Gap 15.4 H (5-15) MEQ/L BUN 25 H (9-20) mg/dL Creatinine 1.63 H (0.66-1.25) mg/dL Estimated GFR 57.8 ML/MIN Glucose 101 (74-106) mg/dL POC Glucometer (74 to 106) mg/dL Hemoglobin A1c (4.5-6.0) % Lactic Acid (0.4-2.0) Calcium 8.7 (8.4-10.2) mg/dL Total Bilirubin (0.2-1.3) mg/dL Direct Bilirubin (0.0-0.4) mg/dL AST (17-59) U/L ALT (0-50) U/L Alkaline Phosphatase (38-126) U/L Creatine Kinase 1529 H (55-170) U/L Troponin I (0.000-0.033) ng/mL Serum Total Protein (6.3-8.2) g/dL Albumin (3.5-5.0) g/dL Triglycerides (30-150) mg/dL Cholesterol (50-200) mg/dL LDL Cholesterol (30-100) mg/dL HDL Cholesterol (40-60) mg/dL Heart Disease Risk Ratio TSH 3rd Generation (0.470-4.680) mIU/L Urine Color Yellow (Yellow) Urine Appearance Cloudy A (Clear) Urine pH 5.0 (4.6-8.0) Ur Specific [place] 1.020 (1.005-1.030) Urine Protein 100 A (Negative) Urine Glucose (UA) Negative (Negative) mg/dL Urine Ketones Trace A (Negative) Urine Blood Trace (Negative) Urine Nitrite Negative (Negative) Urine Bilirubin Negative (Negative) Urine Urobilinogen 1.0 A (0.2) mg/dL Ur Leukocyte Esterase Negative (Negative) U Hyaline Cast (Auto) 3-5 A (0-2) /LPF Urine Microscopic RBC 0-2 (0-5) /HPF Urine Microscopic WBC 0-2 (0-5) /HPF Ur Epithelial Cells None Seen (None Seen) /HPF Urine Bacteria None Seen (None Seen) /HPF Urine Culture Reflexed NO (NO) Urine Opiates Level NEGATIVE (NEGATIVE) Ur Methadone NEGATIVE (NEGATIVE) Urine Barbiturates NEGATIVE (NEGATIVE) Ur Phencyclidine (PCP) NEGATIVE (NEGATIVE) Urine Amphetamine POSITIVE A (NEGATIVE) U Benzodiazepine Level NEGATIVE (NEGATIVE) Urine Cocaine NEGATIVE (NEGATIVE) Urine Marijuana (THC) POSITIVE A (NEGATIVE) Ethyl Alcohol (0-10) mg/dL 09/23/23 09/23/23 09/23/23 Range/Units 14:44 14:36 14:30 WBC (4.23-9.07) x10^3/uL RBC (4.63-6.08) x10^6/uL Hgb (13.7-17.5) g/dL Hct (40.1-51.0) % MCV (79.0-92.2) fL MCH (25.7-32.2) pg MCHC (32.3-36.5) g/dL RDW (11.6-14.4) % Plt Count (163-337) x10^3/uL MPV (9.4-12.4) fL Gran % (34.0-67.9) % Immature Gran % (Auto) (0.001-0.429) % Nucleat RBC Rel Count (0.00-0.2) % Eos # (Auto) (0.04-0.54) x10^3/uL Immature Gran # (Auto) (0.001-0.031) x10^3u/L Absolute Lymphs (auto) (1.32-3.57) x10^3/uL Absolute Monos (auto) (0.30-0.82) x10^3/uL Absolute Nucleated RBC (0.00-0.012) x10^3u/L Lymphocytes % (21.8-53.1) % Monocytes % (5.3-12.2) % Eosinophils % (0.8-7.0) % Basophils % (0.2-1.2) % Absolute Granulocytes (1.78-5.38) x10^3/uL Basophils # (0.01-0.08) x10^3/uL Sodium (135-145) mmol/L Potassium (3.5-5.1) mmol/L Chloride (98-107) mmol/L Carbon Dioxide (22-30) mmol/L Anion Gap (5-15) MEQ/L BUN (9-20) mg/dL Creatinine (0.66-1.25) mg/dL Estimated GFR ML/MIN Glucose (74-106) mg/dL POC Glucometer 113 H (74 to 106) mg/dL Hemoglobin A1c (4.5-6.0) % Lactic Acid 1.6 (0.4-2.0) Calcium (8.4-10.2) mg/dL Total Bilirubin (0.2-1.3) mg/dL Direct Bilirubin 0.5 H (0.0-0.4) mg/dL AST (17-59) U/L ALT (0-50) U/L Alkaline Phosphatase (38-126) U/L Creatine Kinase (55-170) U/L Troponin I (0.000-0.033) ng/mL Serum Total Protein (6.3-8.2) g/dL Albumin (3.5-5.0) g/dL Triglycerides (30-150) mg/dL Cholesterol (50-200) mg/dL LDL Cholesterol (30-100) mg/dL HDL Cholesterol (40-60) mg/dL Heart Disease Risk Ratio TSH 3rd Generation (0.470-4.680) mIU/L Urine Color (Yellow) Urine Appearance (Clear) Urine pH (4.6-8.0) Ur Specific [place] (1.005-1.030) Urine Protein (Negative) Urine Glucose (UA) (Negative) mg/dL Urine Ketones (Negative) Urine Blood (Negative) Urine Nitrite (Negative) Urine Bilirubin (Negative) Urine Urobilinogen (0.2) mg/dL Ur Leukocyte Esterase (Negative) U Hyaline Cast (Auto) (0-2) /LPF Urine Microscopic RBC (0-5) /HPF Urine Microscopic WBC (0-5) /HPF Ur Epithelial Cells (None Seen) /HPF Urine Bacteria (None Seen) /HPF Urine Culture Reflexed (NO) Urine Opiates Level (NEGATIVE) Ur Methadone (NEGATIVE) Urine Barbiturates (NEGATIVE) Ur Phencyclidine (PCP) (NEGATIVE) Urine Amphetamine (NEGATIVE) U Benzodiazepine Level (NEGATIVE) Urine Cocaine (NEGATIVE) Urine Marijuana (THC) (NEGATIVE) Ethyl Alcohol (0-10) mg/dL 09/23/23 09/23/23 09/23/23 Range/Units 14:30 14:30 14:30 WBC (4.23-9.07) x10^3/uL RBC (4.63-6.08) x10^6/uL Hgb (13.7-17.5) g/dL Hct (40.1-51.0) % MCV (79.0-92.2) fL MCH (25.7-32.2) pg MCHC (32.3-36.5) g/dL RDW (11.6-14.4) % Plt Count (163-337) x10^3/uL MPV (9.4-12.4) fL Gran % (34.0-67.9) % Immature Gran % (Auto) (0.001-0.429) % Nucleat RBC Rel Count (0.00-0.2) % Eos # (Auto) (0.04-0.54) x10^3/uL Immature Gran # (Auto) (0.001-0.031) x10^3u/L Absolute Lymphs (auto) (1.32-3.57) x10^3/uL Absolute Monos (auto) (0.30-0.82) x10^3/uL Absolute Nucleated RBC (0.00-0.012) x10^3u/L Lymphocytes % (21.8-53.1) % Monocytes % (5.3-12.2) % Eosinophils % (0.8-7.0) % Basophils % (0.2-1.2) % Absolute Granulocytes (1.78-5.38) x10^3/uL Basophils # (0.01-0.08) x10^3/uL Sodium 139 (135-145) mmol/L Potassium 3.4 L (3.5-5.1) mmol/L Chloride 104 (98-107) mmol/L Carbon Dioxide 20 L (22-30) mmol/L Anion Gap 17.1 H (5-15) MEQ/L BUN 28 H (9-20) mg/dL Creatinine 1.72 H (0.66-1.25) mg/dL Estimated GFR 54.2 ML/MIN Glucose 119 H (74-106) mg/dL POC Glucometer (74 to 106) mg/dL Hemoglobin A1c 5.45 (4.5-6.0) % Lactic Acid (0.4-2.0) Calcium 9.9 (8.4-10.2) mg/dL Total Bilirubin 2.20 H (0.2-1.3) mg/dL Direct Bilirubin (0.0-0.4) mg/dL AST 42 (17-59) U/L ALT 31 (0-50) U/L Alkaline Phosphatase 98 (38-126) U/L Creatine Kinase 1012 H (55-170) U/L Troponin I 0.033 (0.000-0.033) ng/mL Serum Total Protein 8.7 H (6.3-8.2) g/dL Albumin 5.1 H (3.5-5.0) g/dL Triglycerides 118 (30-150) mg/dL Cholesterol 247 H (50-200) mg/dL LDL Cholesterol 155 H (30-100) mg/dL HDL Cholesterol 56 (40-60) mg/dL Heart Disease Risk Ratio 4.0 TSH 3rd Generation 0.789 (0.470-4.680) mIU/L Urine Color (Yellow) Urine Appearance (Clear) Urine pH (4.6-8.0) Ur Specific [place] (1.005-1.030) Urine Protein (Negative) Urine Glucose (UA) (Negative) mg/dL Urine Ketones (Negative) Urine Blood (Negative) Urine Nitrite (Negative) Urine Bilirubin (Negative) Urine Urobilinogen (0.2) mg/dL Ur Leukocyte Esterase (Negative) U Hyaline Cast (Auto) (0-2) /LPF Urine Microscopic RBC (0-5) /HPF Urine Microscopic WBC (0-5) /HPF Ur Epithelial Cells (None Seen) /HPF Urine Bacteria (None Seen) /HPF Urine Culture Reflexed (NO) Urine Opiates Level (NEGATIVE) Ur Methadone (NEGATIVE) Urine Barbiturates (NEGATIVE) Ur Phencyclidine (PCP) (NEGATIVE) Urine Amphetamine (NEGATIVE) U Benzodiazepine Level (NEGATIVE) Urine Cocaine (NEGATIVE) Urine Marijuana (THC) (NEGATIVE) Ethyl Alcohol < 10 (0-10) mg/dL 09/23/23 Range/Units 14:30 WBC 12.8 H (4.23-9.07) x10^3/uL RBC 4.94 (4.63-6.08) x10^6/uL Hgb 14.5 (13.7-17.5) g/dL Hct 42.5 (40.1-51.0) % MCV 86.0 (79.0-92.2) fL MCH 29.4 (25.7-32.2) pg MCHC 34.1 (32.3-36.5) g/dL RDW 14.0 (11.6-14.4) % Plt Count 305 (163-337) x10^3/uL MPV 9.3 L (9.4-12.4) fL Gran % 74.4 H (34.0-67.9) % Immature Gran % (Auto) 0.2 (0.001-0.429) % Nucleat RBC Rel Count 0.0 (0.00-0.2) % Eos # (Auto) 0.07 (0.04-0.54) x10^3/uL Immature Gran # (Auto) 0.03 (0.001-0.031) x10^3u/L Absolute Lymphs (auto) 2.02 (1.32-3.57) x10^3/uL Absolute Monos (auto) 1.14 H (0.30-0.82) x10^3/uL Absolute Nucleated RBC 0.00 (0.00-0.012) x10^3u/L Lymphocytes % 15.8 L (21.8-53.1) % Monocytes % 8.9 (5.3-12.2) % Eosinophils % 0.5 L (0.8-7.0) % Basophils % 0.2 (0.2-1.2) % Absolute Granulocytes 9.53 H (1.78-5.38) x10^3/uL Basophils # 0.03 (0.01-0.08) x10^3/uL Sodium (135-145) mmol/L Potassium (3.5-5.1) mmol/L Chloride (98-107) mmol/L Carbon Dioxide (22-30) mmol/L Anion Gap (5-15) MEQ/L BUN (9-20) mg/dL Creatinine (0.66-1.25) mg/dL Estimated GFR ML/MIN Glucose (74-106) mg/dL POC Glucometer (74 to 106) mg/dL Hemoglobin A1c (4.5-6.0) % Lactic Acid (0.4-2.0) Calcium (8.4-10.2) mg/dL Total Bilirubin (0.2-1.3) mg/dL Direct Bilirubin (0.0-0.4) mg/dL AST (17-59) U/L ALT (0-50) U/L Alkaline Phosphatase (38-126) U/L Creatine Kinase (55-170) U/L Troponin I (0.000-0.033) ng/mL Serum Total Protein (6.3-8.2) g/dL Albumin (3.5-5.0) g/dL Triglycerides (30-150) mg/dL Cholesterol (50-200) mg/dL LDL Cholesterol (30-100) mg/dL HDL Cholesterol (40-60) mg/dL Heart Disease Risk Ratio TSH 3rd Generation (0.470-4.680) mIU/L Urine Color (Yellow) Urine Appearance (Clear) Urine pH (4.6-8.0) Ur Specific [place] (1.005-1.030) Urine Protein (Negative) Urine Glucose (UA) (Negative) mg/dL Urine Ketones (Negative) Urine Blood (Negative) Urine Nitrite (Negative) Urine Bilirubin (Negative) Urine Urobilinogen (0.2) mg/dL Ur Leukocyte Esterase (Negative) U Hyaline Cast (Auto) (0-2) /LPF Urine Microscopic RBC (0-5) /HPF Urine Microscopic WBC (0-5) /HPF Ur Epithelial Cells (None Seen) /HPF Urine Bacteria (None Seen) /HPF Urine Culture Reflexed (NO) Urine Opiates Level (NEGATIVE) Ur Methadone (NEGATIVE) Urine Barbiturates (NEGATIVE) Ur Phencyclidine (PCP) (NEGATIVE) Urine Amphetamine (NEGATIVE) U Benzodiazepine Level (NEGATIVE) Urine Cocaine (NEGATIVE) Urine Marijuana (THC) (NEGATIVE) Ethyl Alcohol (0-10) mg/dL - Progress Progress Note: Patient found to have rhabdomyolysis with acute kidney injury. He is now on his second liter of normal saline. Initial troponin negative. Lactate within normal limits. Had discussion with patient about admission versus discharge home, patient would like to be discharged home if possible so I did agree to repeat labs once his second liter of saline was completed. If his kidney function improves will consider discharge home. Patient's repeat CK increased to 1500 creatinine did trend down to 1.63. I recommended observation for IV fluids and electrolyte monitoring as well as to trend 1 more troponin. Patient declines admission and prefers to leave AGAINST MEDICAL ADVICE. Counseled pt/family regarding: lab results, diagnosis, need for follow-up, rad results Medical Desision Making - Diagnostic Testing Diagnostic test were ordered, analyzed, and reviewed by me: Yes Radiological Interpretation: Interpreted by me, Reviewed by me, Teleradiologist Report - Risk of complications The pt has a mod risk of morbidity or mortality based on: Need for prescription drug management The pt has a high risk of morbidity or mortality based on: Decision regarding hospitilization or escalation of hosp level of care - Departure Departure Disposition: AMA Clinical Impression: JENNY (acute kidney injury), Rhabdomyolysis, Methamphetamine abuse, Hyperbilirubinemia, Elevated cholesterol, Elevated LDL cholesterol level, Leukocytosis, Hyperglycemia, Marijuana intoxication, Syncope and collapse, Convulsion Condition: Good Critical Care Time: No Referrals: EMI MAXWELL MD [Primary Care Provider] - Follow up/PCP as directed Instructions: Syncope (Fainting) (DC)
[2023-09-23 14:42] VITALS: TEMP 98.4; O2SAT 98
[2023-09-23] MEDS ORDERED: Sodium Chloride 0.9% 1000 ML 1,000 ML ONE ×2 (14:50→16:00)
[2023-09-23] MEDS: Sodium Chloride 0.9% 1000 ML 1,000 ML IV STA ×2 (14:50→16:01)
[2023-09-23 15:02] LABS: Absolute Neutrophil Ct (ANC) 9.53 x10^3/uL (1.78-5.38); BASOPHIL % 0.2 % (0.2-1.2); Basophil (Absolute #) 0.03 x10^3/uL (0.01-0.08); Eosinophil % 0.5 % (0.8-7.0); Eosinophil (Absolute #) 0.07 x10^3/uL (0.04-0.54); Hematocrit 42.5 % (40.1-51.0); Hemoglobin 14.5 g/dL (13.7-17.5); IMMATURE GRAN # 0.03 x10^3u/L (0.001-0.031); IMMATURE GRAN % 0.2 % (0.001-0.429); Lymphocyte (Absolute #) 2.02 x10^3/uL (1.32-3.57); Lymphocytes % 15.8 % (21.8-53.1); Mean Corpuscular Hemoglobin 29.4 pg (25.7-32.2); Mean Corpuscular Hgb Concent. 34.1 g/dL (32.3-36.5); Mean Platelet Volume 9.3 fL (9.4-12.4); Monocyte (Absolute #) 1.14 x10^3/uL (0.30-0.82); Monocytes % 8.9 % (5.3-12.2); Neutrophil % 74.4 % (34.0-67.9); Platelet Count 305 x10^3/uL (163-337); Red Blood Count 4.94 x10^6/uL (4.63-6.08); White Blood Count 12.8 x10^3/uL (4.23-9.07)
[2023-09-23] MEDS ORDERED: TRANDATE 20 MG/4 ML SYRINGE IV ONE (15:05)
[2023-09-23] MEDS: TRANDATE 20 MG/4 ML SYRINGE IV ONE (15:08)
[2023-09-23 15:11] LABS: Appearance Cloudy (Clear); Bacteria None Seen /HPF (None Seen); Bilirubin Negative (Negative); Blood Trace (Negative); Epithelial Cells None Seen /HPF (None Seen); Glucose, Urine Negative (Negative); Ketones Trace (Negative); Leukocyte Esterase Negative (Negative); Nitrite Negative (Negative); Protein,Urine Dip 100 (Negative); RBC 0-2 /HPF (0-5); WBC 0-2 /HPF (0-5)
[2023-09-23 15:25] LABS: ADD URINE CULTURE? NO (NO)
[2023-09-23 15:28] LABS: Barbiturate,Urine NEGATIVE (NEGATIVE); Benzodiazepine,Urine NEGATIVE (NEGATIVE); Cocaine,Urine NEGATIVE (NEGATIVE); Methadone,Urine NEGATIVE (NEGATIVE); Opiate,Urine NEGATIVE (NEGATIVE); PCP,Urine NEGATIVE (NEGATIVE); THC,Urine POSITIVE (NEGATIVE)
[2023-09-23] MEDS ORDERED: PROTONIX 40 MG IV IV ONE (15:34)
[2023-09-23] MEDS: PROTONIX 40 MG IV IV ONE (15:35)
--- NOTE | 2023-09-23 15:37 | XRAY ---
CLINICAL HISTORY: head trauma, seizure COMPARISON: None. TECHNIQUE: An Axial [id number] CT scan of the brain was performed from the skull base to the high parietal region with reformated were performed. One of the following dose reduction techniques was utilized for this exam.Automated exposure control, adjustment of the mA and/or kV according to patient size, and use of iterative reconstruction. FINDINGS: Given the significant motion artifact, the study showed: The visualized brain parenchyma shows a normal appearance. No focal parenchymal abnormalities are demonstrated. Tucker-white matter differentiation is maintained. No midline shifts or deformity. No intracerebral or extra axial hematoma. Normal size and configuration of the cerebral ventricles. Normal CT appearance of the posterior fossa structures namely the cerebellar hemispheres, brainstem and cerebellar peduncles. The IACs are unremarkable. The cerebello-pontine angles are clear. The pituitary gland, the pineal gland, the optic chiasm is unremarkable. The osseous structures in the skull base are unremarkable. No definite calvarium fractures. Scanned paranasal sinuses showed mucosal thickening of the maxillary and ethmoid sinus signifying bilateral maxillary and ethmoid sinusitis. Hypertrophy of the right nasal conchae. IMPRESSION: Unremarkable non-CT study for the brain. If clinically needed, MRI with diffusion-weighted imaging is recommended for further evaluation. [facility] was called at [phone] at 3:31 PM EST, 09/23/[address] Dennis was informed regarding the Negative Stroke Results. Electronically Signed by: Michael Ryan MD. (09/23/2023 15:34:17 EDT)
[2023-09-23 15:55] LABS: ALBUMIN 5.1 g/dL (3.5-5.0); ALKALINE PHOSPHATASE 98 U/L (38-126); ANION GAP 17.1 MEQ/L (5-15); BLOOD UREA NITROGEN 28 mg/dL (9-20); CHLORIDE 104 mmol/L (98-107); CK-Creatinine Phosphokinase 1012 U/L (55-170); Calcium 9.9 mg/dL (8.4-10.2); Carbon Dioxide 20 mmol/L (22-30); Cholesterol 247 mg/dL (50-200); Creatinine 1 1.72 mg/dL (0.66-1.25); EST GLOMERULAR FILTRATION RATE 54.2 ML/MIN; ETHYL ALCOHOL < 10 mg/dL (0-10); Glucose 119 mg/dL (74-106); HDL CHOLESTEROL 56 mg/dL (40-60); LDL, DIRECT 155 mg/dL (30-100); Potassium 3.4 mmol/L (3.5-5.1); SGOT/AST 42 U/L (17-59); SGPT/ALT 31 U/L (0-50); SODIUM 139 mmol/L (135-145); TRIGLYCERIDE 118 mg/dL (30-150); TSH, 3RD Generation 0.789 mIU/L (0.470-4.680); Total Protein 8.7 g/dL (6.3-8.2)
[2023-09-23 16:11] LABS: Amphetamine,Urine POSITIVE (NEGATIVE)
[2023-09-23 16:16] VITALS: RESP 16
[2023-09-23 17:05] VITALS: BP 116/81; PULSE 102
[2023-09-23 17:42] LABS: ANION GAP 15.4 MEQ/L (5-15); Calcium 8.7 mg/dL (8.4-10.2); Creatinine 1 1.63 mg/dL (0.66-1.25); EST GLOMERULAR FILTRATION RATE 57.8 ML/MIN; Potassium 3.2 mmol/L (3.5-5.1)
== END 2023-09-23 18:03 | disposition left against medical advice (07) ==
LOC: ED 14:13
DX: R55 Syncope and collapse (principal); I10 Essential (primary) hypertension; R07.9 Chest pain, unspecified; F15.90 Other stimulant use, unspecified, uncomplicated; N17.9 Acute kidney failure, unspecified; M62.82 Rhabdomyolysis; R56.9 Unspecified convulsions; R73.9 Hyperglycemia, unspecified; D72.829 Elevated white blood cell count, unspecified; E78.5 Hyperlipidemia, unspecified; E80.6 Other disorders of bilirubin metabolism
CPT/HCPCS: 36000; 36415; 70450; 80048; 80053; 80061; 80307; 81001; 82077; 82248; 82550; 82947; 83036; 83605; 83721; 84146; 84443; 84484; 85025; 87040; 93005; 93041; 96374; 96375; 99284

== ENCOUNTER 2023-10-07 00:49 | Emergency (ER) | payer BC ==
[2023-10-07 01:36] VITALS: BP 147/105; PULSE 112; RESP 24; TEMP 98; O2SAT 97
--- NOTE | 2023-10-07 01:36 | ERPHSYRPT ---
- History of Present Illness Time Seen by Provider: 10/07/23 01:20 Source: patient, family Exam Limitations: no limitations Physician History: This is a 32-year-old white male patient who has a history of gastroesophageal reflux disease and accidentally drank a small amount of water with bleach in it. There was approximately three quarters water and one quarter bleach present per his estimation. He did not drink the whole thing. He did swallow the first drink and then made himself throw up. He followed this with the full glass of only water. He rates a 1 out of 10 heartburn. He is out of his Protonix. He has no chest pain. He has no shortness of breath. There is no topical/skin bleeds exposure. He has no nausea. He denies abdominal pain. This occurred approximately 20 to 30 minutes prior to arrival to the emergency department. Patient's primary care provider is Dr. Maxwell Severity: mild Modifying Factors: Improves With: nothing Associated Symptoms: heartburn (Mild, 1 out of 10), No nausea, No vomiting, No abdominal pain, No shortness of breath, No chest pain Allergies/Adverse Reactions: No Known Drug Allergies Allergy (Verified 10/07/23 01:36) Home Medications: Amlodipine Besylate [Norvasc] 10 mg PO DAILY 02/23/23 [History] Metoprolol Succinate 25 mg Xl* [Toprol-Xl 25MG Tablets] 50 mg PO BID 02/23/23 [History] PANTOPRAZOLE 40 mg Tablet [Protonix 40MG Tablet] 40 mg PO DAILY 02/23/23 [History] Buspirone HCl 5 mg [Buspar 5 mg] 15 mg PO DAILY 09/23/23 [History] buPROPion HCL [Wellbutrin Xl] 300 mg PO DAILY 09/23/23 [History] Hx Tetanus, Diphtheria Vaccination/Date Given: Yes Hx Influenza Vaccination/Date Given: No Hx Pneumococcal Vaccination/Date Given: No Travel Risk - Emerging Infectious Disease Are you exhibiting symptoms associated with any current EIDs: No - Review of Systems Constitutional: No Symptoms Eyes: No Symptoms Ears, Nose, & Throat: No Symptoms Respiratory: No Symptoms Cardiac: No Symptoms Abdominal/Gastrointestinal: Other (Mild, 1 out of 10 heartburn) Genitourinary Symptoms: No Symptoms Musculoskeletal: No Symptoms Skin: No Symptoms Neurological: No Symptoms Psychological: No Symptoms Endocrine: No Symptoms Hematologic/Lymphatic: No Symptoms Immunological/Allergic: No Symptoms All Other Systems: Reviewed and Negative - Past Medical History Pertinent Past Medical History: Yes Neurological History: No Pertinent History ENT History: No Pertinent History Cardiac History: Hypertension Respiratory History: No Pertinent History Endocrine Medical History: No Pertinent History GI Medical History: GERD, GI Bleed Psycho-Social History: Anxiety, Depression Other Medical History: 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 - Past Surgical History Past Surgical History: Yes Neuro Surgical History: No Pertinent History Cardiac: No Pertinent History Respiratory: No Pertinent History Gastrointestinal: No Pertinent History Genitourinary: No Pertinent History Musculoskeletal: No Pertinent History Male Surgical History: No Pertinent History Other Surgical History: T&A - Social History Smoking Status: Former smoker How long have you smoked: 5 Exposure to second hand smoke: Yes Drug Use: none Patient Lives Alone: No - Social Determinants of Health Will the patient participate in the screening: Declined to provide - Nursing Vital Signs Nursing Vital Signs: Initial Vital Signs Temperature 98.0 F 10/07/23 01:22 Pulse Rate 112 H 10/07/23 01:22 Respiratory Rate 24 10/07/23 01:22 Blood Pressure 147/105 10/07/23 01:22 O2 Sat by Pulse Oximetry 97 10/07/23 01:22 Pain Scale Pain Intensity 1 - Physical Exam General Appearance: no apparent distress, alert, anxiety Eye Exam: PERRL/EOMI, eyes nml inspection Ears, Nose, Throat Exam: normal ENT inspection, moist mucous membranes Neck Exam: normal inspection, non-tender, supple, full range of motion Respiratory Exam: normal breath sounds, lungs clear, airway intact, No chest tenderness, No respiratory distress Cardiovascular Exam: regular rate/rhythm, normal heart sounds, normal peripheral pulses Gastrointestinal/Abdomen Exam: soft, normal bowel sounds, No tenderness Rectal Exam: not done Back Exam: normal inspection, normal range of motion, No CVA tenderness, No vertebral tenderness Extremity Exam: normal inspection, normal range of motion, pelvis stable Neurologic Exam: alert, oriented x 3, cooperative, director of hemophilia II-XII nml as tested, nml cerebellar function, nml station & gait, sensation nml Skin Exam: normal color, warm, dry Lymphatic Exam: No adenopathy SpO2 Interpretation: normal O2 Delivery: Room Air - Course Nursing assessment & vital signs reviewed: Yes Ordered Tests: Active Orders 24 hr Category Date Time Status IV Insertion STAT Care 10/07/23 01:36 Active AMYLASE Stat Lab 10/07/23 01:36 Ordered CBC W DIFF Stat Lab 10/07/23 01:36 Ordered CMP Stat Lab 10/07/23 01:36 Ordered LIPASE Stat Lab 10/07/23 01:36 Ordered Medication Summary Generic Name Dose Route Start Last Admin Trade Name Freq PRN Reason Stop Dose Admin Sodium Chloride 1,000 mls @ 999 mls/hr 10/07/23 01:36 Sodium Chloride 0.9% 1000 Ml IV 10/07/23 02:36 .[id number] STA Discontinued Medications Generic Name Dose Route Start Last Admin Trade Name Freq PRN Reason Stop Dose Admin Ondansetron HCl 4 mg 10/07/23 01:36 Ondansetron Hcl 4 Mg/2 Ml Vial IV 10/07/23 01:37 STAT ONE Pantoprazole Sodium 40 mg 10/07/23 01:36 Pantoprazole 40 Mg Vial IV 10/07/23 01:37 STAT ONE - Progress Progress: improved, re-examined Progress Note: 10/07/23 01:34 My medical decision making and the assignment of moderate complexity to this patient's medical issue today is based on review of the patient's past medical history, review of patient's medication list, review of patient drug allergy list, history of present illness and physical findings on examination. The work up in this patient includes placement of intravenous line, infusion of normal saline solution, infusion of Protonix, CBC, CMP, amylase, lipase. In addition, we will follow the recommendations of the Poison Control Center. We will contact Poison Control Center by phone. 10/07/23 01:40 The nursing staff went into place an IV into the patient. He is refusing IV line placement and wants to leave AGAINST MEDICAL ADVICE. Poison control center was contacted. They told the nurse here in the emergency department that if the patient/family had contacted them prior to coming to the emergency department, they would have told the patient/family not to come to the emergency department and to observe him at home. However, since the patient was a little tachycardic and here my plan was to place the IV and perform the above-stated lab work as well as provide the patient with Protonix intravenously and Zofran intravenously as well as the fluid. Patient refuses and he left AGAINST MEDICAL ADVICE. Counseled pt/family regarding: lab results, diagnosis, need for follow-up Medical Desision Making - Independent Historian Additional History obtained from: Mother - Diagnostic Testing Diagnostic test were ordered, analyzed, and reviewed by me: No - Risk of complications Minimal Risk: Minimal risk of morbidity - Departure Departure Disposition: AMA Clinical Impression: Ingestion of bleach Condition: Stable Critical Care Time: No Referrals: EMI MAXWELL MD [Primary Care Provider] - Follow up/PCP as directed Additional Instructions: Drink plenty of water and milk. Do not consume any spicy fatty foods until you are tolerating water and milk well and there are no symptoms of heartburn. Return to emergency department if your symptoms worsen.
[2023-10-07] MEDS: Sodium Chloride 0.9% 1000 ML 1,000 ML IV STA (01:49)
[2023-10-07] MEDS: Zofran 4 MG/2 ML VIAL IV ONE (01:49)
[2023-10-07] MEDS: PROTONIX 40 MG IV IV ONE (01:49)
== END 2023-10-07 01:41 | disposition left against medical advice (07) ==
LOC: ED 00:49
DX: T54.91XA Toxic effect of unspecified corrosive substance, accidental (unintentional), initial encounter (principal); R12 Heartburn; I10 Essential (primary) hypertension; Z79.899 Other long term (current) drug therapy
CPT/HCPCS: 99281

== ENCOUNTER 2023-10-15 02:32 | Emergency (ER) | payer BC ==
[2023-10-15 03:02] VITALS: TEMP 98.2
[2023-10-15 03:02] LABS: Appearance Cloudy (Clear); Bacteria None Seen /HPF (None Seen); Bilirubin Negative (Negative); Blood Negative (Negative); Epithelial Cells None Seen /HPF (None Seen); Glucose, Urine Negative (Negative); Ketones Negative (Negative); Leukocyte Esterase Negative (Negative); Nitrite Negative (Negative); Ph 5.5 (4.6-8.0); Protein,Urine Dip 30 (Negative); RBC 0-2 /HPF (0-5); Specific Gravity 1.025 (1.005-1.030); Urobilinogen 0.2 mg/dL (0.2); WBC 0-2 /HPF (0-5)
[2023-10-15 03:03] LABS: ADD URINE CULTURE? NO (NO)
[2023-10-15] MEDS ORDERED: BENADRYL 50 MG/ML ONE (03:05)
[2023-10-15] MEDS ORDERED: Ativan 2 MG/1 ML VIAL ONE ×4 (03:05→08:05)
[2023-10-15] MEDS ORDERED: Haldol 5 MG ONE ×2 (03:06→03:33)
[2023-10-15 03:13] LABS: Barbiturate,Urine NEGATIVE (NEGATIVE); Benzodiazepine,Urine NEGATIVE (NEGATIVE); Cocaine,Urine NEGATIVE (NEGATIVE); Methadone,Urine NEGATIVE (NEGATIVE); Opiate,Urine NEGATIVE (NEGATIVE); PCP,Urine NEGATIVE (NEGATIVE); THC,Urine POSITIVE (NEGATIVE)
[2023-10-15] MEDS: Haldol 5 MG IM ONE ×2 (03:15→03:34)
[2023-10-15] MEDS: BENADRYL 50 MG/ML IM ONE (03:15)
[2023-10-15] MEDS: Ativan 2 MG/1 ML VIAL IM ONE ×2 (03:15→03:34)
--- NOTE | 2023-10-15 03:20 | ERPHSYRPT ---
<MILTON PICKARD - Last Filed: 10/15/23 11:12> - History of Present Illness Source: patient Exam Limitations: no limitations Patient Subjective Stated Complaint: pt states he has anxiety and thinks he is dehydrated. pt states he took meth and thinks there is something in it Triage Nursing Assessment: pt ambulated into the er; pt is axo x3; c/o anxiety; pt states pain to back; skin PDW; no respiratory distress present; hypertensive; tachycardic Timing/Duration: today Severity of Symptoms-Max: severe Severity of Symptoms-Current: severe Context related to: other (unknown) Suicidal thoughts: gesture Associated Symptoms: angry, agitated, anxiety, frustrated, hostile, hallucinating, paranoid Previous symptoms: same symptoms as today Hx Tetanus, Diphtheria Vaccination/Date Given: Yes Hx Influenza Vaccination/Date Given: No Hx Pneumococcal Vaccination/Date Given: No <RIKI PISANO - Last Filed: 10/15/23 23:08> - History of Present Illness Time Seen by Provider: 10/15/23 03:19 Physician History: Patient called ambulance to his house earlier in the night, but when they arrived said he no longer needed them. After this his mother reported that he had sent messages earlier in the day saying he was planning to hurt himself so she contacted the police. They then arrived and he fled from the house and drove to the hospital to be treated for anxiety and dehydration. On arrival to the hospital patient was behaving erratically in the waiting room and when confronted by police patient began making statements of paranoia and delirium. He was clearly a threat to himself and those around him so an ED was placed at that time. Please tried several calming techniques to allow for treatment, but patient was not cooperative. Patient remains in acute psychosis likely drug- induced. (RIKI PISANO) Allergies/Adverse Reactions: No Known Drug Allergies Allergy (Verified 10/15/23 02:44) Home Medications: Amlodipine Besylate [Norvasc] 10 mg PO DAILY 02/23/23 [History] Metoprolol Succinate 25 mg Xl* [Toprol-Xl 25MG Tablets] 50 mg PO BID 02/23/23 [History] PANTOPRAZOLE 40 mg Tablet [Protonix 40MG Tablet] 40 mg PO DAILY 02/23/23 [History] Buspirone HCl 5 mg [Buspar 5 mg] 15 mg PO DAILY 09/23/23 [History] buPROPion HCL [Wellbutrin Xl] 300 mg PO DAILY 09/23/23 [History] Travel Risk - International Travel Have you traveled outside of the country in past 3 weeks: No - Emerging Infectious Disease Are you exhibiting symptoms associated with any current EIDs: No <RIKI PISANO - Last Filed: 10/15/23 23:08> - Past Medical History Pertinent Past Medical History: Yes Neurological History: No Pertinent History ENT History: No Pertinent History Cardiac History: Hypertension Respiratory History: No Pertinent History Endocrine Medical History: No Pertinent History Musculoskeletal History: No Pertinent History GI Medical History: GERD, GI Bleed History: No Pertinent History Psycho-Social History: Anxiety, Depression Male Reproductive Disorders: No Pertinent History Other Medical History: 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 - Past Surgical History Past Surgical History: Yes Neuro Surgical History: No Pertinent History Cardiac: No Pertinent History Respiratory: No Pertinent History Gastrointestinal: No Pertinent History Genitourinary: No Pertinent History Musculoskeletal: No Pertinent History Male Surgical History: No Pertinent History Other Surgical History: T&A - Social History Smoking Status: Current every day smoker How long have you smoked: 5 Exposure to second hand smoke: Yes Drug Use: methamphetamines Patient Lives Alone: No - Social Determinants of Health Will the patient participate in the screening: Declined to provide <RIKI PISANO - Last Filed: 10/15/23 23:08> - Review of Systems All Other Systems: Reviewed and Negative <RIKI PISANO - Last Filed: 10/15/23 23:08> - Physical Exam General Appearance: severe distress, anxiety, other (psychosis) Current Suicidality: other (unknown) Neurological Exam: agitated, anxious, disoriented x 3 Appearance: disheveled, impaired insight, impaired recent memory Behavior/Eye Contact/Speech: avoids eye contact, refused to answer, threatening eye contact, increased rate of speech, belligerent, compulsive, uncooperative, agitated, intoxicated appearance Thoughts/Hallucinations: delusions, paranoid, persecution Skin Exam: laceration (4cm left forehead) SpO2 Interpretation: normal SpO2: 96 O2 Delivery: Room Air <RIKI PISANO - Last Filed: 10/15/23 23:08> - Nursing Vital Signs Nursing Vital Signs: Initial Vital Signs Pulse Rate 107 H 10/15/23 02:43 Blood Pressure 160/88 10/15/23 02:43 O2 Sat by Pulse Oximetry 96 10/15/23 02:43 Pain Scale Pain Intensity 0 Procedures - Intubation Time of Intubation: 08:42 Intubation Indications: airway protection Intubation Method: glidescope Tube Size (cm): 7.5 Medications: Etomidate, Succinylcholine C-Spine: immobilized Endotracheal Tube Confirmation: bilateral breath sounds, positive end tidal CO2, good rise & fall of chest, stable or inc of O2 sat Intubation Complications: no complications Performed By: ED Physician Post Intubation Xray: Yes <MILTON PICKARD - Last Filed: 10/15/23 11:12> - Laceration/Wound Repair Left Head Time of Procedure: 04:15 Wound Location: Left, forehead Wound Length (cm): 4 Wound's Depth, Shape: superficial Wound Explored: clean Irrigated: No Hibiclens Prep: Yes Wound Debrided: minimal Wound Repaired With: Dermabond Layer Closure?: No Sterile Dressing Applied?: No Splint Applied?: No <RIKI PISANO - Last Filed: 10/15/23 23:08> - Intubation Progress/X-ray Impression: 10/15/23 09:59 Second intubation time 931. Patient is already on propofol, given 50 mg bolus of propofol, previous tube is removed and with help of glide scope 7.5 ET tube is placed with bilateral good breath sounds and oxygen saturation improved to 99%. Confirmed with x-rays and it was initially at 25 at the lip but pulled out to 23 at the lip. X-rays reviewed by me, official report is pending. NG tube is dropped in and confirmed with air movement in the epigastric are a/chest x-ray by me. 10/15/23 10:01 (MILTON PICKARD) - Course Nursing assessment & vital signs reviewed: Yes EKG Interpreted by Me: RATE (100), Sinus Tach, NORMAL AXIS, prolonged QT interval (436), NORMAL ST-T <RIKI PISANO - Last Filed: 10/15/23 23:08> Ordered Tests: Active Orders 24 hr Category Date Time Status Cath [Catheter-[place]] STAT Care 10/15/23 04:10 Completed Clean Catch Urine Specimen STAT Care 10/15/23 02:44 Completed EKG-ER Only STAT Care 10/15/23 03:18 Completed IV Insertion STAT Care 10/15/23 03:16 Completed Intubation [Prepare for Endotracheal Intubation] STAT Care 10/15/23 10:28 Completed Telemetry q4h Care 10/15/23 04:24 Completed CERVICAL SPINE WO CONTRAST [CT] Stat Exams 10/15/23 09:31 Completed CHEST 1 VIEW (PORTABLE) Routine Exams 10/15/23 09:05 Completed CHEST 1 VIEW (PORTABLE) Stat Exams 10/15/23 10:41 Taken HEAD WITHOUT CONTRAST [CT] Stat Exams 10/15/23 09:31 Completed ACETAMINOPHEN Stat Lab 10/15/23 03:51 Completed ARTERIAL BLOOD GASES Stat Lab 10/15/23 09:47 Completed CBC W DIFF Stat Lab 10/15/23 03:51 Completed CK (IN-HOUSE) [CK-Creatinine Phosphokinase] Stat Lab 10/15/23 10:03 Completed CMP Stat Lab 10/15/23 03:51 Completed ETHYL ALCOHOL Stat Lab 10/15/23 03:51 Completed LITHIUM Stat Lab 10/15/23 03:51 Completed MAG [MAGNESIUM] Stat Lab 10/15/23 10:03 Completed SALICYLATE Stat Lab 10/15/23 03:51 Completed UA W/RFX UR CULTURE Stat Lab 10/15/23 02:53 Completed Urine Triage Profile Stat Lab 10/15/23 02:53 Completed Intubate Patient STAT RT 10/15/23 10:31 Completed Ventilator Management STAT RT 10/15/23 10:28 Completed Medication Summary Discontinued Medications Generic Name Dose Route Start Last Admin Trade Name Freq PRN Reason Stop Dose Admin Diphenhydramine HCl 50 mg 10/15/23 03:04 10/15/23 03:15 Diphenhydramine Hcl 50 Mg/Ml Vial IM 10/15/23 03:05 50 mg STAT ONE Administration Diphenhydramine HCl Confirm 10/15/23 03:05 Diphenhydramine Hcl 50 Mg/Ml Vial Administered 10/15/23 03:06 Dose 50 mg .ROUTE .STK-MED ONE Haloperidol Lactate 5 mg 10/15/23 02:59 10/15/23 03:15 Haloperidol Lactate 5 Mg/Ml Vial IM 10/15/23 03:00 5 mg STAT ONE Administration Haloperidol Lactate Confirm 10/15/23 03:06 Haloperidol Lactate 5 Mg/Ml Vial Administered 10/15/23 03:07 Dose 5 mg .ROUTE .STK-MED ONE Haloperidol Lactate 5 mg 10/15/23 03:21 10/15/23 03:34 Haloperidol Lactate 5 Mg/Ml Vial IM 10/15/23 03:22 5 mg STAT ONE Administration Haloperidol Lactate Confirm 10/15/23 03:33 Haloperidol Lactate 5 Mg/Ml Vial Administered 10/15/23 03:34 Dose 5 mg .ROUTE .STK-MED ONE Sodium Chloride 1,000 mls @ 999 mls/hr 10/15/23 03:16 10/15/23 05:23 Sodium Chloride 0.9% 1000 Ml IV 10/15/23 04:16 Infused .Q1H1M STA Infusion Sodium Chloride Confirm 10/15/23 04:10 Sodium Chloride 0.9% 1000 Ml Administered 10/15/23 04:11 Dose 1,000 mls @ ud .ROUTE .STK-MED ONE Potassium Chloride 20 meq in 100 mls @ 50 mls/hr 10/15/23 04:30 10/15/23 06:24 Potassium Chloride 20 Meq In Water 100ml IV 10/15/23 08:29 50 mls/hr Q2H ASHLEY Administration Sodium Chloride 1,000 mls @ 999 mls/hr 10/15/23 04:29 10/15/23 06:51 Sodium Chloride 0.9% 1000 Ml IV 10/15/23 05:29 Infused .Q1H1M STA Infusion Sodium Chloride Confirm 10/15/23 05:15 Sodium Chloride 0.9% 1000 Ml Administered 10/15/23 05:16 Dose 1,000 mls @ ud .ROUTE .STK-MED ONE Sodium Chloride 1,000 mls @ 999 mls/hr 10/15/23 06:20 10/15/23 07:47 Sodium Chloride 0.9% 1000 Ml IV 10/15/23 07:20 Infused .Q1H1M STA Infusion Sodium Chloride Confirm 10/15/23 06:20 Sodium Chloride 0.9% 1000 Ml Administered 10/15/23 06:21 Dose 1,000 mls @ ud .ROUTE .STK-MED ONE Sodium Chloride 1,000 mls @ 100 mls/hr 10/15/23 07:30 10/15/23 07:33 Sodium Chloride 0.9% 1000 Ml IV 11/14/23 07:29 100 mls/hr .Q10H ASHLEY Administration Potassium Chloride Confirm 10/15/23 04:28 Potassium Chloride 20 Meq In Water 100ml Administered 10/15/23 04:29 Dose 100 mls @ ud IV .STK-MED ONE Potassium Chloride Confirm 10/15/23 06:20 Potassium Chloride 20 Meq In Water 100ml Administered 10/15/23 06:21 Dose 100 mls @ ud IV .STK-MED ONE Sodium Chloride Confirm 10/15/23 07:26 Sodium Chloride 0.9% 1000 Ml Administered 10/15/23 07:27 Dose 1,000 mls @ ud .ROUTE .STK-MED ONE Ketamine HCl 50 mg 10/15/23 04:10 10/15/23 04:54 Ketamine Hcl 50 Mg/Ml IV 10/15/23 04:11 50 mg STAT ONE Administration Ketamine HCl Confirm 10/15/23 04:54 Ketamine Hcl 50 Mg/Ml Administered 10/15/23 04:55 Dose 50 mg .ROUTE .STK-MED ONE Lorazepam 2 mg 10/15/23 03:04 10/15/23 03:15 Lorazepam 2 Mg/1 Ml 2 Mg Vial IM 10/15/23 03:05 2 mg STAT ONE Administration Lorazepam Confirm 10/15/23 03:05 Lorazepam 2 Mg/1 Ml 2 Mg Vial Administered 10/15/23 03:06 Dose 2 mg .ROUTE .STK-MED ONE Lorazepam 2 mg 10/15/23 03:22 10/15/23 03:34 Lorazepam 2 Mg/1 Ml 2 Mg Vial IM 10/15/23 03:23 2 mg STAT ONE Administration Lorazepam Confirm 10/15/23 03:33 Lorazepam 2 Mg/1 Ml 2 Mg Vial Administered 10/15/23 03:34 Dose 2 mg .ROUTE .STK-MED ONE Lorazepam Confirm 10/15/23 07:36 Lorazepam 2 Mg/1 Ml 2 Mg Vial Administered 10/15/23 07:37 Dose 2 mg .ROUTE .STK-MED ONE Lorazepam 2 mg 10/15/23 07:46 10/15/23 07:48 Lorazepam 2 Mg/1 Ml 2 Mg Vial IV 10/15/23 07:47 2 mg STAT ONE Administration Lorazepam 2 mg 10/15/23 08:02 10/15/23 08:06 Lorazepam 2 Mg/1 Ml 2 Mg Vial IV 10/15/23 08:03 2 mg STAT ONE Administration Lorazepam Confirm 10/15/23 08:05 Lorazepam 2 Mg/1 Ml 2 Mg Vial Administered 10/15/23 08:06 Dose 2 mg .ROUTE .STK-MED ONE Lab/Rad Data: Laboratory Result Diagrams 10/15/23 03:51 10/15/23 03:51 Laboratory Results 10/15/23 10/15/23 10/15/23 Range/Units 10:03 09:47 03:55 WBC (4.23-9.07) x10^3/uL RBC (4.63-6.08) x10^6/uL Hgb (13.7-17.5) g/dL Hct (40.1-51.0) % MCV (79.0-92.2) fL MCH (25.7-32.2) pg MCHC (32.3-36.5) g/dL RDW (11.6-14.4) % Plt Count (163-337) x10^3/uL MPV (9.4-12.4) fL Gran % (34.0-67.9) % Immature Gran % (Auto) (0.001-0.429) % Nucleat RBC Rel Count (0.00-0.2) % Eos # (Auto) (0.04-0.54) x10^3/uL Immature Gran # (Auto) (0.001-0.031) x10^3u/L Absolute Lymphs (auto) (1.32-3.57) x10^3/uL Absolute Monos (auto) (0.30-0.82) x10^3/uL Absolute Nucleated RBC (0.00-0.012) x10^3u/L Lymphocytes % (21.8-53.1) % Monocytes % (5.3-12.2) % Eosinophils % (0.8-7.0) % Basophils % (0.2-1.2) % Absolute Granulocytes (1.78-5.38) x10^3/uL Basophils # (0.01-0.08) x10^3/uL Puncture Site RIGHT BRACHIAL pCO2 44 (35-45) mmHg pO2 131 H* (75-100) mmHg Base Excess -4.1 L (-2.0-2.0) O2 Saturation 97.8 (94-100) g/dF ABG pH 7.31 L (7.35-7.45) ABG HCO3 22.2 (22-28) ABG O2 Sat (Measured) 99.9 (95-100) % Lexx Test NOT APPLICABLE A-a Gradient 99 a/A Ratio 0.57 Hemoglobin 12.7 Carboxyhemoglobin 1.2 (0.0-6.9) % THgb Methemoglobin 0.8 L (1.4-1.5) % Temperature 37.0 C POC O2 Flow Rate 40 % Vent Mode A/C Vent Rate 14 /MIN Tidal Volume 700 cc PEEP 5.0 cmH2O Sodium (135-145) mmol/L Potassium 3.6 (3.5-5.1) mmol/L Chloride (98-107) mmol/L Carbon Dioxide (22-30) mmol/L Anion Gap (5-15) MEQ/L BUN (9-20) mg/dL Creatinine (0.66-1.25) mg/dL Estimated GFR ML/MIN Glucose (74-106) mg/dL Calcium (8.4-10.2) mg/dL Magnesium 2.4 H (1.6-2.3) mg/dL Total Bilirubin (0.2-1.3) mg/dL AST (17-59) U/L ALT (0-50) U/L Alkaline Phosphatase (38-126) U/L Creatine Kinase 918 H (55-170) U/L Serum Total Protein (6.3-8.2) g/dL Albumin (3.5-5.0) g/dL Urine Color (Yellow) Urine Appearance (Clear) Urine pH (4.6-8.0) Ur Specific Mcgrath (1.005-1.030) Urine Protein (Negative) Urine Glucose (UA) (Negative) mg/dL Urine Ketones (Negative) Urine Blood (Negative) Urine Nitrite (Negative) Urine Bilirubin (Negative) Urine Urobilinogen (0.2) mg/dL Ur Leukocyte Esterase (Negative) U Hyaline Cast (Auto) (0-2) /LPF Urine Microscopic RBC (0-5) /HPF Urine Microscopic WBC (0-5) /HPF Ur Epithelial Cells (None Seen) /HPF Urine Bacteria (None Seen) /HPF Urine Culture Reflexed (NO) Salicylates (2-20) mg/dL Urine Opiates Level (NEGATIVE) Ur Methadone (NEGATIVE) Acetaminophen (10-30) ug/ml Urine Barbiturates (NEGATIVE) Valproic Acid < 10.0 L (50-100) ug/mL Ur Phencyclidine (PCP) (NEGATIVE) Urine Amphetamine (NEGATIVE) U Benzodiazepine Level (NEGATIVE) Zwingle (0.60-1.20) mmol/L Urine Cocaine (NEGATIVE) Urine Marijuana (THC) (NEGATIVE) Ethyl Alcohol (0-10) mg/dL 10/15/23 10/15/23 10/15/23 Range/Units 03:51 03:51 03:51 WBC 11.8 H (4.23-9.07) x10^3/uL RBC 4.66 (4.63-6.08) x10^6/uL Hgb 13.9 (13.7-17.5) g/dL Hct 40.8 (40.1-51.0) % MCV 87.6 (79.0-92.2) fL MCH 29.8 (25.7-32.2) pg MCHC 34.1 (32.3-36.5) g/dL RDW 13.2 (11.6-14.4) % Plt Count 347 H (163-337) x10^3/uL MPV 10.3 (9.4-12.4) fL Gran % 70.2 H (34.0-67.9) % Immature Gran % (Auto) 0.3 (0.001-0.429) % Nucleat RBC Rel Count 0.0 (0.00-0.2) % Eos # (Auto) 0.13 (0.04-0.54) x10^3/uL Immature Gran # (Auto) 0.04 H (0.001-0.031) x10^3u/L Absolute Lymphs (auto) 2.46 (1.32-3.57) x10^3/uL Absolute Monos (auto) 0.85 H (0.30-0.82) x10^3/uL Absolute Nucleated RBC 0.00 (0.00-0.012) x10^3u/L Lymphocytes % 20.9 L (21.8-53.1) % Monocytes % 7.2 (5.3-12.2) % Eosinophils % 1.1 (0.8-7.0) % Basophils % 0.3 (0.2-1.2) % Absolute Granulocytes 8.25 H (1.78-5.38) x10^3/uL Basophils # 0.04 (0.01-0.08) x10^3/uL Puncture Site pCO2 (35-45) mmHg pO2 (75-100) mmHg Base Excess (-2.0-2.0) O2 Saturation (94-100) g/dF ABG pH (7.35-7.45) ABG HCO3 (22-28) ABG O2 Sat (Measured) (95-100) % Lexx Test A-a Gradient a/A Ratio Hemoglobin Carboxyhemoglobin (0.0-6.9) % THgb Methemoglobin (1.4-1.5) % Temperature C POC O2 Flow Rate % Vent Mode Vent Rate /MIN Tidal Volume cc PEEP cmH2O Sodium 143 (135-145) mmol/L Potassium 2.9 L* (3.5-5.1) mmol/L Chloride 103 (98-107) mmol/L Carbon Dioxide 15 L* (22-30) mmol/L Anion Gap 27.8 H (5-15) MEQ/L BUN 20 (9-20) mg/dL Creatinine 1.47 H (0.66-1.25) mg/dL Estimated GFR 65.4 ML/MIN Glucose 121 H (74-106) mg/dL Calcium 9.8 (8.4-10.2) mg/dL Magnesium (1.6-2.3) mg/dL Total Bilirubin 1.40 H (0.2-1.3) mg/dL AST 54 (17-59) U/L ALT 64 H (0-50) U/L Alkaline Phosphatase 104 (38-126) U/L Creatine Kinase (55-170) U/L Serum Total Protein 8.9 H (6.3-8.2) g/dL Albumin 5.4 H (3.5-5.0) g/dL Urine Color (Yellow) Urine Appearance (Clear) Urine pH (4.6-8.0) Ur Specific Mcgrath (1.005-1.030) Urine Protein (Negative) Urine Glucose (UA) (Negative) mg/dL Urine Ketones (Negative) Urine Blood (Negative) Urine Nitrite (Negative) Urine Bilirubin (Negative) Urine Urobilinogen (0.2) mg/dL Ur Leukocyte Esterase (Negative) U Hyaline Cast (Auto) (0-2) /LPF Urine Microscopic RBC (0-5) /HPF Urine Microscopic WBC (0-5) /HPF Ur Epithelial Cells (None Seen) /HPF Urine Bacteria (None Seen) /HPF Urine Culture Reflexed (NO) Salicylates < 1.0 L (2-20) mg/dL Urine Opiates Level (NEGATIVE) Ur Methadone (NEGATIVE) Acetaminophen < 10 L (10-30) ug/ml Urine Barbiturates (NEGATIVE) Valproic Acid (50-100) ug/mL Ur Phencyclidine (PCP) (NEGATIVE) Urine Amphetamine (NEGATIVE) U Benzodiazepine Level (NEGATIVE) Zwingle < 0.2 L (0.60-1.20) mmol/L Urine Cocaine (NEGATIVE) Urine Marijuana (THC) (NEGATIVE) Ethyl Alcohol < 10 (0-10) mg/dL 10/15/23 10/15/23 Range/Units 02:53 02:53 WBC (4.23-9.07) x10^3/uL RBC (4.63-6.08) x10^6/uL Hgb (13.7-17.5) g/dL Hct (40.1-51.0) % MCV (79.0-92.2) fL MCH (25.7-32.2) pg MCHC (32.3-36.5) g/dL RDW (11.6-14.4) % Plt Count (163-337) x10^3/uL MPV (9.4-12.4) fL Gran % (34.0-67.9) % Immature Gran % (Auto) (0.001-0.429) % Nucleat RBC Rel Count (0.00-0.2) % Eos # (Auto) (0.04-0.54) x10^3/uL Immature Gran # (Auto) (0.001-0.031) x10^3u/L Absolute Lymphs (auto) (1.32-3.57) x10^3/uL Absolute Monos (auto) (0.30-0.82) x10^3/uL Absolute Nucleated RBC (0.00-0.012) x10^3u/L Lymphocytes % (21.8-53.1) % Monocytes % (5.3-12.2) % Eosinophils % (0.8-7.0) % Basophils % (0.2-1.2) % Absolute Granulocytes (1.78-5.38) x10^3/uL Basophils # (0.01-0.08) x10^3/uL Puncture Site pCO2 (35-45) mmHg pO2 (75-100) mmHg Base Excess (-2.0-2.0) O2 Saturation (94-100) g/dF ABG pH (7.35-7.45) ABG HCO3 (22-28) ABG O2 Sat (Measured) (95-100) % Lexx Test A-a Gradient a/A Ratio Hemoglobin Carboxyhemoglobin (0.0-6.9) % THgb Methemoglobin (1.4-1.5) % Temperature C POC O2 Flow Rate % Vent Mode Vent Rate /MIN Tidal Volume cc PEEP cmH2O Sodium (135-145) mmol/L Potassium (3.5-5.1) mmol/L Chloride (98-107) mmol/L Carbon Dioxide (22-30) mmol/L Anion Gap (5-15) MEQ/L BUN (9-20) mg/dL Creatinine (0.66-1.25) mg/dL Estimated GFR ML/MIN Glucose (74-106) mg/dL Calcium (8.4-10.2) mg/dL Magnesium (1.6-2.3) mg/dL Total Bilirubin (0.2-1.3) mg/dL AST (17-59) U/L ALT (0-50) U/L Alkaline Phosphatase (38-126) U/L Creatine Kinase (55-170) U/L Serum Total Protein (6.3-8.2) g/dL Albumin (3.5-5.0) g/dL Urine Color Yellow (Yellow) Urine Appearance Cloudy A (Clear) Urine pH 5.5 (4.6-8.0) Ur Specific Mcgrath 1.025 (1.005-1.030) Urine Protein 30 (Negative) Urine Glucose (UA) Negative (Negative) mg/dL Urine Ketones Negative (Negative) Urine Blood Negative (Negative) Urine Nitrite Negative (Negative) Urine Bilirubin Negative (Negative) Urine Urobilinogen 0.2 (0.2) mg/dL Ur Leukocyte Esterase Negative (Negative) U Hyaline Cast (Auto) 11-20 (0-2) /LPF Urine Microscopic RBC 0-2 (0-5) /HPF Urine Microscopic WBC 0-2 (0-5) /HPF Ur Epithelial Cells None Seen (None Seen) /HPF Urine Bacteria None Seen (None Seen) /HPF Urine Culture Reflexed NO (NO) Salicylates (2-20) mg/dL Urine Opiates Level NEGATIVE (NEGATIVE) Ur Methadone NEGATIVE (NEGATIVE) Acetaminophen (10-30) ug/ml Urine Barbiturates NEGATIVE (NEGATIVE) Valproic Acid (50-100) ug/mL Ur Phencyclidine (PCP) NEGATIVE (NEGATIVE) Urine Amphetamine POSITIVE A (NEGATIVE) U Benzodiazepine Level NEGATIVE (NEGATIVE) Zwingle (0.60-1.20) mmol/L Urine Cocaine NEGATIVE (NEGATIVE) Urine Marijuana (THC) POSITIVE A (NEGATIVE) Ethyl Alcohol (0-10) mg/dL - Progress Progress: improved, re-examined <MILTON PICKARD - Last Filed: 10/15/23 11:12> - Progress Counseled pt/family regarding: lab results, diagnosis, need for follow-up <RIKI PISANO - Last Filed: 10/15/23 23:08> - Progress Progress Note: 10/15/23 08:06 Patient is checked out to me at shift change from Dr. Pisano with pending CT head and psych eval. Patient has some suicidal thoughts/gestures and was found to be delirium paranoia/drug-induced psychosis needing multiple medications to calm him down including HaldolBenadryl/Ativan/ketamine and is in 4-point restraints. Patient is able to maintain his airway and vitals. He woke up and was agitated Ativan was repeated. Later on mom called and reported that patient fell a flight of stairs and back of his head. Will obtain CT head and cervical spine. If negative we will plan on admitting patient to the hospital service for that once patient is sober enough to be evaluated by behavioral health. 10/15/23 09:56 Patient is given couple of x 2 mg IV Ativan but patient is very agitated, thrashing around, and was plan to intubate patient because he could harm himself and he has received multiple doses of medication with no significant improvement. Patient is intubated with 7.5 ET tube. Patient has diffuse swelling in the pharynx with swelling of epiglottis and it was a difficult intubation. Patient is sent for CT head and cervical spine and during transportation tube was dislodged and his saturation was dropping. It was co nfirmed with glide a scope that patient tube is out. He is reintubated with 7.5 ET tube with good bilateral breath sounds and improvement in saturation to 99%. Will continue with propofol. 10/15/23 11:12 CT head and cervical spines are negative for any acute intracranial trauma findings, no cervical spine fracture or subluxation, does have a small hematoma left anterior frontal area with a small laceration which is glued by Dr. Pisano. Discussed with Dr. Ortega from [facility], reviewed history, workup and agreed with transfer. I have shared the results of workup with mom who informed that patient had been intubated multiple times in the past after using meth which throws him to bad psychosis. (MILTON PICKARD) Attempted sedation with 50mg Benadryl, 2mg Ativan and 5mg Haldol with no improvement in agitation. Patient jumped up from bed with hand cuffs on and slammed his head against the whiteboard causing a 4cm laceration on the left forehead. Patient continued to thrash around so we gave another 2mg Ativan and 5mg Haldol. This provided some improvement, but he still remained a threat to all of the staff so police requested 4 point restraints. He was placed in restraints and perez catheter placed to monitor I/Os, temperature sensing and to avoid unsafe situations with staff. I want to order a CT head and neck to r/o injury, but even with sedation he is agitated and a risk to staff and himself. He is moving all extremities trying to get out of restraints w/o evidence of neuro deficit. Patient given 50mg Ketamine which finally helped calm the patient, but still became very agitated when attempting to manipulate. His UDS showed positive for amphetamines and marijuana. K 2.9 so 20 IV potassium chloride given. 3L NS given to improve his JENNY. Remainder of labs unremarkable. Discussed plan for head CT with Dr. Pickard at shift change. (RIKI PISANO) Medical Desision Making - Independent Historian Additional History obtained from: Mother - Discussion of managment Care discussed with:: on-call "doc" (Dr. [facility]) Reviewed:: Test results Agreed on:: Treatment plan Will see patient: in ED - Diagnostic Testing Radiological Interpretation: Reviewed by me, Teleradiologist Report - Risk of complications The pt has a mod risk of morbidity or mortality based on: Need for prescription drug management The pt has a high risk of morbidity or mortality based on: Decision regarding hospitilization or escalation of hosp level of care <MILTON PICKARD - Last Filed: 10/15/23 11:12> - Departure Departure Disposition: Transfer Critical Care Time: No Critical Care Time(excluding separately billable procedures): Critical 30-74 mins <MILTON PICKARD - Last Filed: 10/15/23 11:12> <RIKI PISANO - Last Filed: 10/15/23 23:08> - Departure Clinical Impression: Drug-induced psychotic disorder, Rhabdomyolysis, Rhabdomyolysis, Hypokalemia, JENNY (acute kidney injury), Methamphetamine abuse, Marijuana intoxication Condition: Stable Referrals: EMI MAXWELL MD [Primary Care Provider] - Follow up/PCP as directed
[2023-10-15 03:54] LABS: Amphetamine,Urine POSITIVE (NEGATIVE)
[2023-10-15] MEDS ORDERED: Sodium Chloride 0.9% 1000 ML 1,000 ML ONE ×4 (04:10→07:26)
[2023-10-15 04:11] LABS: ACETAMINOPHEN < 10 ug/ml (10-30); ALBUMIN 5.4 g/dL (3.5-5.0); ALKALINE PHOSPHATASE 104 U/L (38-126); ANION GAP 27.8 MEQ/L (5-15); BLOOD UREA NITROGEN 20 mg/dL (9-20); CHLORIDE 103 mmol/L (98-107); Calcium 9.8 mg/dL (8.4-10.2); Creatinine 1 1.47 mg/dL (0.66-1.25); EST GLOMERULAR FILTRATION RATE 65.4 ML/MIN; ETHYL ALCOHOL < 10 mg/dL (0-10); Glucose 121 mg/dL (74-106); SALICYLATE < 1.0 mg/dL (2-20); SGOT/AST 54 U/L (17-59); SGPT/ALT 64 U/L (0-50); SODIUM 143 mmol/L (135-145); Total Protein 8.9 g/dL (6.3-8.2)
[2023-10-15] MEDS: Sodium Chloride 0.9% 1000 ML 1,000 ML IV STA ×3 (04:12→06:25)
[2023-10-15 04:20] LABS: Potassium 2.9 mmol/L (3.5-5.1)
[2023-10-15 04:21] LABS: Absolute Neutrophil Ct (ANC) 8.25 x10^3/uL (1.78-5.38); BASOPHIL % 0.3 % (0.2-1.2); Basophil (Absolute #) 0.04 x10^3/uL (0.01-0.08); Carbon Dioxide 15 mmol/L (22-30); Eosinophil % 1.1 % (0.8-7.0); Eosinophil (Absolute #) 0.13 x10^3/uL (0.04-0.54); Hematocrit 40.8 % (40.1-51.0); Hemoglobin 13.9 g/dL (13.7-17.5); IMMATURE GRAN # 0.04 x10^3u/L (0.001-0.031); IMMATURE GRAN % 0.3 % (0.001-0.429); Lymphocyte (Absolute #) 2.46 x10^3/uL (1.32-3.57); Lymphocytes % 20.9 % (21.8-53.1); Mean Cell Volume 87.6 fL (79.0-92.2); Mean Corpuscular Hemoglobin 29.8 pg (25.7-32.2); Mean Corpuscular Hgb Concent. 34.1 g/dL (32.3-36.5); Mean Platelet Volume 10.3 fL (9.4-12.4); Monocyte (Absolute #) 0.85 x10^3/uL (0.30-0.82); Monocytes % 7.2 % (5.3-12.2); Neutrophil % 70.2 % (34.0-67.9); Platelet Count 347 x10^3/uL (163-337); Red Blood Count 4.66 x10^6/uL (4.63-6.08); Red Cell Distribution Width 13.2 % (11.6-14.4); White Blood Count 11.8 x10^3/uL (4.23-9.07)
[2023-10-15] MEDS ORDERED: POTASSIUM CHLORIDE 20 mEq IN WATER 100ML 100 ML IV ONE ×2 (04:28→06:20)
[2023-10-15] MEDS: POTASSIUM CHLORIDE 20 mEq IN WATER 100ML 20 MEQ/100 ML BAG IV SCH (04:38)
[2023-10-15] MEDS ORDERED: Ketamine HCl 50 MG/ML ONE (04:54)
[2023-10-15] MEDS: Ketamine HCl 50 MG/ML IV ONE (04:54)
[2023-10-15] MEDS: Sodium Chloride 0.9% 1000 ML 1,000 ML IV SCH (07:33)
[2023-10-15] MEDS: Ativan 2 MG/1 ML VIAL IV ONE ×2 (07:48→08:06)
--- NOTE | 2023-10-15 09:35 | XRAY ---
CLINICAL HISTORY: ET TUBE PLACEMENT COMPARISON: 02/23/2023 TECHNIQUE: X-ray of the chest, AP view only. FINDINGS: The endotracheal tube is seen with its tip in a normal position, 3.2cm from jonathon. Nasogastric tube is seen with its tip in normal position. Haziness is seen in both perihilar regions and both lower zones. Normal configuration of the mediastinum. The brennon are normal in size and position. The cardiac size is normal. Costophrenic and cardiophrenic angles are clear. Bony thorax is unremarkable. IMPRESSION: 1. The endotracheal tube is seen with its tip in a normal position. 2. Haziness is seen in both perihilar regions and both lower zones. Clinical and lab correlation is advised to rule out the possibility of pulmonary infection. 3. Interval new findings. Electronically Signed by: Michael Ryan MD. (10/15/2023 09:31:40 EDT)
[2023-10-15 09:47] VITALS: RESP 14
[2023-10-15 10:02] LABS: A-aADO2 99; ABG HEMOGLOBIN 12.7; ABG POTASSIUM 3.6 (3.5-5.1); ARTERIAL BLD GAS O2 SATURATION 99.9 % (95-100); ARTERIAL BLD GAS TIDAL VOLUME 700 cc; ARTERIAL BLOOD GAS BASE EXCESS -4.1 (-2.0-2.0); ARTERIAL BLOOD GAS FIO2 40 %; ARTERIAL BLOOD GAS PCO2 44 mmHg (35-45); ARTERIAL BLOOD GAS PO2 131 mmHg (75-100); ARTERIAL BLOOD GAS VENT MODE A/C; ARTERIAL BLOOD GAS pH 7.31 (7.35-7.45); CARBOXYHEMOGLOBIN 1.2 % THgb (0.0-6.9); HCO3- 22.2 (22-28); HGB O2 SAT 97.8 g/dF (94-100); Methhemoglobin 0.8 % (1.4-1.5); paO2 pAO1 0.57
[2023-10-15 10:03] LABS: ABG SITE RIGHT BRACHIAL; ARTERIAL BLOOD GAS VENT RATE 14 /MIN
--- NOTE | 2023-10-15 10:03 | XRAY ---
CLINICAL HISTORY: fall/ COMPARISON: none. TECHNIQUE: A CT scan of the cervical spine was performed without the administration of intravenous contrast. Contiguous images were obtained from the skull base to the upper thoracic spine. Coronal and sagittal reformatted images were also reviewed. One of the following dose-reduction techniques was utilized for this exam. Automated exposure control, adjustment of the mA and/or kV according to patient size, and use of iterative reconstruction. FINDINGS: Straightening of cervical alignment. A few tiny foci of calcifications were seen related to the anterior cervical vertebral endplates, likely degenerative. Intervertebral disc spaces are preserved. No evidence of fracture or dislocation. The craniocervical junctions are unremarkable. Posterior elements are unremarkable. Bony spinal canal within normal limits. No evidence of aggressive bone lesion. Soft tissue is unremarkable. Noted endotracheal tube within the airway and ryle tube into the pharynx. Noted bilatearl ethmoidal and maxillary sinusitis with left maxillary sinus retention cyst. Noted hypertrophied right nasal turbinates. The scanned lung apices showed basal consolidation areas, which could be contusions, A dedicated CT chest is needed for correlation. IMPRESSION: 1. No evidence of fracture or dislocation. 2. Straightening of cervical alignment, possibly due to muscular spasm. 3. The scanned lung apices showed basal consolidation areas, which could be contusions, A dedicated CT chest is needed for correlation. Electronically Signed by: Michael Ryan MD. (10/15/2023 09:59:06 EDT)
[2023-10-15 10:18] LABS: MAGNESIUM 2.4 mg/dL (1.6-2.3)
--- NOTE | 2023-10-15 10:19 | XRAY ---
CLINICAL HISTORY: fall/ COMPARISON: 09/23/2023 was reviewed. TECHNIQUE: Axial noncontrast CT scan of the brain was performed from the skull base to the high parietal region with multiple reformats. One of the following dose reduction techniques were utilized for this exam: Automated exposure control, adjustment of the mA and/or kV according to patient size, use of iterative reconstruction. DLP : 1070.09 mGy-cm. FINDINGS: No intracerebral or extra axial hematoma. No definite calvarium fractures. The osseous structures in the skull base are unremarkable. A left frontal subcutaneous hematoma is noted measuring 23 x 23 x 8 mm. No underlying bony fractures. The visualized brain parenchyma shows normal appearance. Tuckre-white matter differentiation is maintained. No midline shifts or deformity. Normal size and configuration of the cerebral ventricles. Normal CT appearance of the posterior fossa structures namely the cerebellar hemispheres, brainstem and cerebellar peduncles. The cerebello-pontine angles are clear. Near complete opacification of the right nasal cavity with hypertrophied turbinates is noted (redemonstrated). Left maxillary retention cyst is noted as well as minimal maxillary mucosal thickening (redemonstrated). IMPRESSION: 1. No intracerebral or extra axial hematoma and no definite calvarial fractures. 2. A left frontal subcutaneous hematoma is noted measuring 23 x 23 x 8 mm. No underlying bony fractures. A new finding. Electronically Signed by: Michael Rayn MD. (10/15/2023 10:14:28 EDT)
[2023-10-15 11:28] VITALS: BP 107/55; PULSE 66
[2023-10-15 23:08] VITALS: O2SAT 96
--- NOTE | 2023-10-16 08:52 | XRAY ---
CLINICAL HISTORY: et tube placement COMPARISON: 10/15/2023 TECHNIQUE: X-ray of the chest, AP view only. FINDINGS: The endotracheal tube is seen with its tip in a normal position, 3.8cm from the jonathon. Nasogastric tube is seen with its tip in normal position. Haziness is seen in both perihilar regions and both lower zones. Normal configuration of the mediastinum. The brennon are normal in size and position. The cardiac size is normal. Costophrenic and cardiophrenic angles are clear. Bony thorax is unremarkable. IMPRESSION: The endotracheal tube is seen with its tip in a normal position. No significant interval changes. Electronically Signed by: Michael Ryan MD. (10/15/2023 10:00:33 EDT)
== END 2023-10-15 12:05 | disposition short-term general hospital (02) ==
LOC: ED 02:32
DX: F15.159 Other stimulant abuse with stimulant-induced psychotic disorder, unspecified (principal); M62.82 Rhabdomyolysis; E87.6 Hypokalemia; N17.9 Acute kidney failure, unspecified; F12.929 Cannabis use, unspecified with intoxication, unspecified; R45.851 Suicidal ideations; S01.81XA Laceration without foreign body of other part of head, initial encounter; W10.9XXA Fall (on) (from) unspecified stairs and steps, initial encounter; I10 Essential (primary) hypertension; Z79.899 Other long term (current) drug therapy; Z72.0 Tobacco use
CPT/HCPCS: 12002; 31500; 36000; 36415; 36600; 51702; 70450; 71045; 72125; 80053; 80143; 80164; 80178; 80179; 80307; 81001; 82077; 82375; 82550; 82803; 83735; 85025; 93005; 94002; 96360; 96361; 96365; 96372; 96374; 96375; 96376; 99285; 99291; J1200; J1630; J2060; J3480